=== PATIENT | male | born 1955 | race Caucasian/White ===

== ENCOUNTER 2019-05-26 20:39 | Observation (INO) | payer MEDICARE, SELFPAY ==
[2019-05-26 20:45] VITALS: BMI 25.4
[2019-05-26 22:13] VITALS: RESP 18
[2019-05-26] MEDS: sodium chloride 0.9% 1,000 ML 125 ML IV (22:13)
[2019-05-26] MEDS: heparin 5,000 unit/mL INJ 1 mL 5000 UNIT SUBCUT (22:13)
[2019-05-26] MEDS: morphine 4 mg/mL SDV 1 mL 2 MG IVP (22:13)
[2019-05-26 22:44] VITALS: BP 113/75; PULSE 76; RESP 18; TEMP 36.6; O2SAT 91
[2019-05-27] VITALS (17 sets, daily range): BP systolic 104–123; BP diastolic 65–79; PULSE 78–107; RESP 18–22; TEMP 36.6–37.5; O2SAT 92–97
[2019-05-27] MEDS: morphine 4 mg/mL SDV 1 mL 2 MG IVP (01:15)
[2019-05-27 02:01] LABS: Basophils # 0.1 10^3/uL (0.0-0.1); Basophils % 0.7 %; Eosinophils % 0.2 %; Hematocrit 51.7 % (42.0-52.0); Hemoglobin 17.5 g/dL (11.7-16.6); Lymphocytes # 0.8 10^3/uL (0.8-4.8); Lymphocytes % 6.7 %; Mean Corpuscular HGB Conc 33.8 g/dL (30.0-36.0); Mean Corpuscular Hemoglobin 31.5 pg (28.0-34.0); Mean Platelet Volume 9.4 fL (7.4-10.4); Monocytes # 0.9 10^3/uL (0.2-0.9); Monocytes % 7.5 %; Neutrophils # 10.3 10^3/uL (1.8-7.7); Neutrophils % 84.6 %; Nucleated Red Blood Cells % 0 %; Platelet Count 231 10^3/cmm (130-400); Red Blood Count 5.56 10^6/uL (4.1-5.3); Red Cell Distribution Width 14.4 % (12.1-15.1); White Blood Count 12.1 10^3/uL (4.0-10.0)
[2019-05-27 02:13] LABS: Alanine Aminotransferase 26 U/L (0-41); Albumin Level 4.8 g/dL (3.5-5.2); Alkaline Phosphatase 82 IU/L (40-130); Anion Gap 16.7 (5-19); Aspartate Amino Transferase 28 U/L (0-40); Blood Urea Nitrogen 23 mg/dL (8-23); Calcium 10.2 mg/Dl (8.8-10.2); Carbon Dioxide 26 mmol/L (22-29); Chloride 94 mmol/L (98-107); Globulin 3.5 g/dL (1.3-4.6); Glucose 129 mg/dL (74-106); Potassium 4.7 mmol/L (3.5-5.1); Sodium 132 mmol/L (136-145); Total Bilirubin 0.3 mg/dL (0.15-1.2); Total Protein 8.3 g/dL (6.6-8.7)
[2019-05-27 02:14] LABS: Lactic Acid 0.7 mmol/L (0.5-2.2)
[2019-05-27] MEDS: ipratropium-albuterol 3 mL Neb INHALATION ×3 (04:34→15:21)
--- NOTE | 2019-05-27 06:06 | PM.HP ---
Providers/Chief Complaint Admitting Physician: Simone Lainez MD Primary Care Provider: Gutierrez Friedman Chief Complaint: Shortness of breath and abdominal pain History of Present Illness Chief complaint: Abdominal pain and SOB HPI: Mr. Gerg Stephens is a pleasent 64 year old male well-known to me from recent clinical encounter that I have evaluated the patient for symptomatic right groin hernia being reducable few days ago and patient supposed to be getting elective right open groin hernia repair with mesh placement, apparently yesterday about 10:00 in the morning after eating couple of burgers he felt upper abdominal pain that got worse associated with shortness of breath, and thus he went to [facility] emergency department for further work-up was done and a CT scan was obtained that showed abnormal pathologic dilation of small bowel with decompression of the proximal and distal small bowel with overall features concerning for internal hernia as compared to a previous CT scan that was done back in 2016 that part of information related to the CT scan of 2016 was over [facility] was conveyed to me by Dr. Gipson ER doc as he contacted me yesterday evening with potential trans-fair to the hospital for concerning of bowel obstruction, and then the CT scan further mention unchanged abnormal tenting of the distal stomach towards the supraumbilical region which could represent gastrocutaneous fistula or adhesion possibly due to previous PEG tube placement, the relation of this abnormal finding to the bowel obstruction is unknown. Patient's labs were not impressive including lactic acid at the other hospital Patient recalls that he passed gas today morning and he feels a bit better, NG was already placed at [facility] and had some gastric content, last bowel movement was day before yesterday. Patient continues to have shortness of breath due to inspissated secretions related to his tracheostomy status post history of laryngeal cancer and neck ready Review of Systems Const: Denies: fever, chills, body aches or malaise Card: Denies: chest pain Resp: Reports: shortness of breath GI: Reports: abdominal pain Neuro: Denies: headache Psych: Reports: anxiety; Denies: depression Medications/Allergies Allergies Allergy/AdvReac Type Severity Reaction Status Date / Time No Known Allergies Allergy Verified 05/22/19 14:22 PFSH Acute PFSH: Statuses (acute, chronic, etc) shown below reflect problem list status as previously entered and may not be historically accurate Medical History (Updated 05/27/19 @ 12:04 by Susana Chandra DO) Anxiety and depression (Acute) COPD (chronic obstructive pulmonary disease) (Acute) Diabetes (Acute) GERD (gastroesophageal reflux disease) (Acute) Hypertension (Acute) Hypothyroidism (Acute) due to radiation Obesity (Acute) Obstructive sleep apnea (Acute) 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 Completed 3 doses of cisplatin, last dose on 10/26/2011 Completed radiation therapy on 11/03/2011 Tobacco abuse (Acute) Surgical History (Updated 05/27/19 @ 08:37 by Susana Chandra DO) History of laparoscopic cholecystectomy (Acute ~2014) 02/17/2016 History of tracheostomy (Acute ~2011) Tracheostomy placement on 09/04/2011 Status post insertion of percutaneous endoscopic gastrostomy (PEG) tube (Acute) PEG tube placed on 09/01/2011 Social History Smoking and tobacco status: current every day smoker cigarettes Packs smoked per day: 1 Quit status (tobacco): has tried quititng Second hand smoke exposure: No Alcohol intake: never Adopted: No Caregiver/support person: Yes Lives independently: Yes Household members: spouse and family Housing: House Marital status: Number of children: 2 Number of grandchildren: 2 service: No Current occupational status: employed and retired Current occupational exposures/hazards: No Pets and animals: Yes History of recent travel: No Leisure activites: games Sexually active: Yes Current gender identity: Male Luli/Samaritan: Sikhism Special luli needs: No Agree to transfusion: No Financial difficulty paying for basics: Decline to Answer Vitals/I&O/Wt Last Vital Signs Temp 97.9 F 05/27/19 04:00 Pulse 90 05/27/19 04:35 Resp 18 05/27/19 04:35 BP 111/75 05/27/19 04:00 Pulse Ox 93 05/27/19 04:35 05/26/19 05/26/19 05/27/19 14:59 22:59 06:59 Intake Total 0 / 0 0 / 0 Output Total 0 / 0 Balance 0 / 0 0 / 0 Weight last 48 hrs Weight 187 lb 6 oz Physical Exam Const: COMMON NORMALS: oriented x3 EXAM LIMITATIONS: other limitations (Appears anxious due to shortness of) GENERAL APPEARANCE: cooperative ORIENTATION/CONSCIOUSNESS: Yes awake, Yes oriented to person, Yes oriented to place and Yes oriented to time HENMT: COMMON NORMALS: normocephalic HEAD & SCALP: normocephalic Eye: COMMON NORMALS: PERRL and no scleral icterus PUPIL: Yes PERRL Neck/C-Spine: OTHER: Tracheostomy in place, nasogastric tube in place Lymph: LYMPHATIC: no lymphadenopathy noted Resp: EFFORT & INSPECTION: Yes able to speak in complete sentences, Yes abnormal respiratory pattern, Yes respiratory distress and Yes uses accessory muscles AUSCULTATION: wheezes (Bilateral) Cardio: COMMON NORMALS: S1 normal heart sound and S2 normal heart sound; negative for no murmurs HEART SOUNDS: S1 normal and S2 normal GI: COMMON NORMALS: soft to palpation; negative for no hepatosplenomegaly INSPECTION: Yes normal to inspection PALPATION: Yes firm, Yes tender (Epigastric region and left upper quad) Details: other (Unreliable abdominal examination due to use of accessory muscles in breathing), No guarding, No rigid, No no hepatosplenomegaly and Yes other (Right inguinal hernia stable examination being reducible, presence of pit at the upper abdomen site of previous PEG tube insertion.evidence of fistula form) Neuro: COMMON NORMALS: oriented x3 SENSORIUM/ORIENTATION: Yes oriented to person, Yes oriented to place and Yes oriented to time Psych: COMMON NORMALS: mental status grossly normal Skin: COMMON NORMALS: no rashes or lesions noted GENERAL SKIN EXAM: no rashes or lesions noted Data : 05/27/19 01:55 05/27/19 01:55 A&P Assessment and plan (1) Bowel obstruction: After limited history taking physical examination and reviewing the chart NG tube to low intermittent wall We will have the fluids running at 75 mL/h as I am concerned about patient's getting more respiratory distress I will reviewthe CT scan images with our radiology Will retrieve the disc for the CT scan done back in 2015 from [facility] to have it shipped over Repeated physical examination Respiratory therapy consultation with frequent nebs every 4-6 hours as needed Hospitalist consultation to address other medical issues including COPD Strict Is&Os Status: Acute Code(s): K56.609 - Unspecified intestinal obstruction, unspecified as to partial versus complete obstruction Attestations Medical Necessity Statement*: Observation fro now Critical Care Time: Critical care time: less than 30 mins Coding Level of Care Code Acute Heel Scorer for Chg Fwd Exam Problem Focused Diagnoses Bowel obstruction K56.609
--- NOTE | 2019-05-27 06:40 | XR_ITS ---
WS: [id number] ABDOMEN SERIES ACUTE Supine and upright views of the abdomen with AP or PA chest CLINICAL INFORMATION: SOB and upper abdominal pain COMPARISON: None. FINDINGS: Endotracheal tube with tip above the michelle. Enteric tube tip in proximal stomach. Heart: Normal cardiac silhouette. Lungs: Chronic emphysematous changes. Calcified granuloma right lung base. No focal pneumonia or sign ificant pleural fluid. Bowel gas pattern: Air distended loops of small bowel with air-fluid levels consistent with partial s mall bowel obstruction. Persistent air within the colon. Contrast in the bladder. Free air: None. Abnormal calcifications: None. Bones: Normal. Cholecystectomy clips. XR/XR acute abdomen series 97831 IMPRESSION: 1. Persistent findings of partial small bowel obstruction with air-fluid level s. Persistent air within the colon. 2. Enteric tube with tip in the proximal stomach. 3. Endotracheal tube tip above the michelle.
--- NOTE | 2019-05-27 08:15 | PM.CONSULT ---
Providers/Reason For Consult Consulting Physican/Specialty*: Susana Chandra DO Hospitalist Reason for Consult*: Management of dyspnea and COPD Requesting Physcian: Dr. Lainez, general surgeon Attending Physician: Simone Lainez MD Primary Care Provider: Gutierrez Friedman History of Present Illness History of Present Illness Greg Stephens is a 64 year old male with a past medical history of squamous cell carcinoma of the hypopharynx that presented from an outside emergency department due to concern for abdominal pain. Patient had been seen and evaluated in general surgery clinic last week, therefore was accepted onto Dr. Lainez' service. Due to concern for abdominal pain and small bowel obstruction. Called for medical management due to patient having COPD and tracheostomy. Patient reports that he is not having any increased cough, no increase in sputum production, reports that when he suctions that he is at his baseline. He denies being on any oxygen at home. Stated that he was diagnosed with sleep apnea in the past but since having his trach he has not required CPAP. He denies any fevers or chills at home, no sick contacts. Patient reports only concern is abdominal pain. Review of Systems Const: Denies: fever, chills, body aches or malaise Eyes: Denies: change in vision ENMT: Denies: nasal congestion Card: Denies: chest pain Resp: Denies: shortness of breath GI: Reports: abdominal pain : Denies: painful urination or blood in urine Musc: Denies: extremity pain or muscle cramps Skin/Breast: Denies: rash or new lesion Neuro: Denies: headache Psych: Reports: anxiety; Denies: depression Endo: Denies: excessive urination or hot flashes Max/Lymph: Denies: easy bruising or easy bleeding Meds/Allergies Home Medications and Allergies Home Medications Medication Instructions Recorded Confirmed Type amitriptyline 50 mg tablet 50 mg PO ONCE 05/22/19 05/22/19 History bupropion HCl 150 mg 24 hr tablet, 150 mg PO BID tab 05/22/19 05/22/19 History extended release cyclobenzaprine 10 mg tablet 10 mg PO TID 05/22/19 05/22/19 History doxepin 25 mg capsule 25 mg PO ONCE cap 05/22/19 05/22/19 History levothyroxine 100 mcg capsule 100 mcg PO ONCE 05/22/19 05/22/19 History lisinopril 5 mg tablet 5 mg PO BID 05/22/19 05/22/19 History lovastatin 10 mg tablet 10 mg PO ONCE 05/22/19 05/22/19 History metoprolol succinate 50 mg 50 mg PO ONCE tab 05/22/19 05/22/19 History tablet,extended release 24 hr pantoprazole 40 mg tablet,delayed 40 mg PO BID tab 05/22/19 05/22/19 History release Allergies Allergy/AdvReac Type Severity Reaction Status Date / Time No Known Allergies Allergy Verified 05/22/19 14:22 Current Medications Current Medications Generic Name Dose Route Start Last Admin Trade Name Freq PRN Reason Stop Dose Admin Albuterol/Ipratropium 3 ml 05/27/19 00:16 05/27/19 04:34 Duoneb INHALATION 3 ml Q4H PRN Administration SHORTNESS OF BREATH Heparin Sodium (Beef Lung) 5,000 unit 05/26/19 21:30 05/26/19 22:13 Heparin SUBCUT 5,000 unit Q8H WHITNEY Administration Morphine Sulfate 2 mg 05/26/19 21:28 05/27/19 01:15 Morphine IVP 2 mg Q2H PRN Administration SEVERE PAIN PFSH Acute PFSH: Statuses (acute, chronic, etc) shown below reflect problem list status as previously entered and may not be historically accurate Medical History (Updated 05/27/19 @ 12:04 by Susana Chandra DO) Anxiety and depression (Acute) COPD (chronic obstructive pulmonary disease) (Acute) Diabetes (Acute) GERD (gastroesophageal reflux disease) (Acute) Hypertension (Acute) Hypothyroidism (Acute) due to radiation Obesity (Acute) Obstructive sleep apnea (Acute) 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 Completed 3 doses of cisplatin, last dose on 10/26/2011 Completed radiation therapy on 11/03/2011 Tobacco abuse (Acute) Surgical History (Updated 05/27/19 @ 08:37 by Susana Chandra DO) History of laparoscopic cholecystectomy (Acute ~2014) 02/17/2016 History of tracheostomy (Acute ~2011) Tracheostomy placement on 09/04/2011 Status post insertion of percutaneous endoscopic gastrostomy (PEG) tube (Acute) PEG tube placed on 09/01/2011 Social History Smoking and tobacco status: current every day smoker cigarettes Packs smoked per day: 1 Quit status (tobacco): has tried quititng Second hand smoke exposure: No Alcohol intake: never Adopted: No Caregiver/support person: Yes Lives independently: Yes Household members: spouse and family Housing: House Marital status: Number of children: 2 Number of grandchildren: 2 service: No Current occupational status: employed and retired Current occupational exposures/hazards: No Pets and animals: Yes History of recent travel: No Leisure activites: games Sexually active: Yes Current gender identity: Male Luli/Yazidi: Orthodox Special luli needs: No Agree to transfusion: No Financial difficulty paying for basics: Decline to Answer Dietary Habits: Current diet type/program: regular Caffeine: No High-fat food intake: 2 times daily Daily servings fruits/vegetables: 0-1 Daily servings of milk/calcium: 0-1 Eating out: rarely or never Reads food labels: usually or always During the past year weight has: remained stable Exercise: What type of physical activity do you participate in?: walking Physical activity functional status: independent ambulation How many days of moderate to strenuous exercise, like a brisk walk, did you do in the last 7 days: 2 Safety: Seatbelt use: always Helmet use: No Drive intoxicated or ride with intoxicated tour bus driver?: never Home Safety: Water heater temperature set < 120 degrees: No Working smoke detector in home: Yes Fire extinguisher in home: No Carbon monoxide detector in home: No Firearms in home: No Personal Safety: Do you feel safe at home: No Victim of physical abuse: No Victim of emotional abuse: No Victim of sexual abuse: No Would you like help information on resources?: No NHANES Social Connection/Isolation: Are you now , , , , never or living with a partner?: In a typical week, how many times do you talk on the telephone with family, friends, or neighbors?: Three or More Times per Week How often do you get together with friends or relatives?: Three or More Times per Week Do you belong to any clubs or organizations such as adventist groups unions, fraternal or athletic groups, or school groups?: No Social isolation score (0-1 are the most socially isolated patients): 2 Social isolation score reviewed/action taken: No Vitals/I&O/Wt Last Vital Signs Temp 97.9 F 05/27/19 07:55 Pulse 98 05/27/19 07:55 Resp 20 H 05/27/19 07:55 BP 123/79 05/27/19 07:55 Pulse Ox 96 05/27/19 07:55 05/26/19 05/27/19 05/27/19 22:59 06:59 14:59 Intake Total 0 / 0 0 / 0 Output Total 0 / 0 Balance 0 / 0 0 / 0 Weight last 48 hrs Weight 84.992 kg Physical Exam Const: COMMON NORMALS: oriented x3 and alert GENERAL APPEARANCE: cooperative ORIENTATION/CONSCIOUSNESS: Yes awake, Yes oriented to person, Yes oriented to place and Yes oriented to time HENMT: COMMON NORMALS: normocephalic and head/scalp atraumatic HEAD & SCALP: normocephalic and atraumatic Eye: COMMON NORMALS: PERRL PUPIL: Yes PERRL Neck/C-Spine: OTHER: trach in place Resp: COMMON NORMALS: normal respiratory effort EFFORT & INSPECTION: Yes able to speak in complete sentences AUSCULTATION: no rhonchi and wheezes expiratory wheezes and throughout Cardio: COMMON NORMALS: regular rate, regular rhythm and no murmurs RATE: regular rate RHYTHM: regular rhythm GI: AUSCULTATION: Yes hypoactive bowel sounds PALPATION: Yes tender (epigastric region) Extremity: COMMON NORMALS: no clubbing, cyanosis or edema and no calf tenderness Neuro: COMMON NORMALS: oriented x3, CN's II-XII intact bilaterally, moves all extremities and no focal motor deficits SENSORIUM/ORIENTATION: Yes alert, Yes oriented to person, Yes oriented to place and Yes oriented to time SPEECH: speech normal Psych: COMMON NORMALS: mental status grossly normal and cooperative Skin: COMMON NORMALS: no rashes or lesions noted GENERAL SKIN EXAM: no rashes or lesions noted Data Imaging^: KUB: My impression: reviewed, report as below Radiologist's impression: 1. Persistent findings of partial small bowel obstruction with air-fluid levels. Persistent air within the colon. 2. Enteric tube with tip in the proximal stomach. 3. Endotracheal tube tip above the michelle. A&P Assessment and plan (1) Bowel obstruction: Per Dr. Giurgius NPO with NG tube placement Patient reports continued pain today, slight improvement today, able to pass flatus today Status: Acute Code(s): K56.609 - Unspecified intestinal obstruction, unspecified as to partial versus complete obstruction (2) COPD (chronic obstructive pulmonary disease): diffuse wheezing, reported that his breathing and secretions are at baseline Oxygen per protocol RTAT Continue close monitoring, patient reports that he is at baseline, but if any change will start on DOxycycline and prednisone Status: Acute Code(s): J44.9 - Chronic obstructive pulmonary disease, unspecified (3) Tobacco abuse: 2ppd Strongly encourage cessation Status: Acute Code(s): Z72.0 - Tobacco use Additional A&P Information History of squamous cell carcinoma of the hypopharynx, in remission status post tracheostomy placement Consult Attestations Medical Necessity Statement: Patient requires continued hospitalization due to small bowel obstruction Coding Level of Care Code Acute Marine Engine Driver for Chg Fwd Diagnoses Bowel obstruction K56.609 COPD (chronic obstructive pulmonary disease) J44.9 Tobacco abuse Z72.0
[2019-05-27] MEDS: sodium chloride 0.9% 1,000 ML 75 ML IV ×2 (08:42→22:23)
[2019-05-27] MEDS: heparin 5,000 unit/mL INJ 1 mL 5000 UNIT SUBCUT ×2 (08:43→19:09)
--- NOTE | 2019-05-27 15:20 | PC.CHAP ---
Pastoral Care Encounter/Spiritual Assessment Type of Contact [] Declined licensed social worker visit [] Patient/Family/Request visit [] Outpatient visit [x] Follow-up visit [] Physician referral [] Code/Alert [] Routine visit [] Staff referral [] Actively dying [] Patient sleeping [] Family support [] [] Out of room [] Palliative care [] [] Receiving care in room [] Pre-surgical visit [] Trauma [] Long length of stay [] ICU visit [] Other: Relational/Emotional Strength [] Patient feels connected with others/family/visitors/staff [] Distress [] Loneliness/isolation [] Abandonment Spirituality of Patient [] Person of Luli [] Attends Presybeterian of their Luli [] Believes in Prayer [] Reads Bible or Orthodoxy materials [] There are Spiritual issues to be addressed Antenna Specialist Interventions [] Prayer [] Active listening [] Non-anxious presence [] Spiritual/emotional support [] Crisis/trauma care [] Spiritual counseling [] Bereavement support [] Provided bereavement packet [] Provided Bible/devotional materials [] Provided toy/stuffed animal, coloring book to patient or family member [] Completed spiritual assessment [] Provided Communion [] Anointing/[place] [] Salvation [] Other: Impact on Illness or Injury [] Angry [] Fearful [] Anxious [] Often cries [] Exhaustion [] Unable to work [] Unable to attend oriental orthodox [] Unable to walk/stand [] Unable to read [] Unable to drive [] Unable to eat/drink [] Unable to sleep [] Unable to be with family [] Other: Summary patient asleep needs follow up heidy qiana Time spent with patient
[2019-05-27] MEDS: predniSONE 20 mg Tablet 40 MG PO (19:08)
[2019-05-27] MEDS: doxycycline 100 mg Tablet PO (19:08)
[2019-05-27] MEDS: sodium chloride 0.9% 500 ML 999 ML IV (19:09)
[2019-05-28] VITALS (9 sets, daily range): BP systolic 109–154; BP diastolic 70–105; PULSE 85–104; RESP 16–26; TEMP 36.8–37.2; O2SAT 87–98
[2019-05-28] MEDS: heparin 5,000 unit/mL INJ 1 mL 5000 UNIT SUBCUT ×3 (01:17→17:34)
--- NOTE | 2019-05-28 05:40 | PM.PN ---
Subjective Subjective: Interval history: Patient overall feels much better, passing more gas and had 3 loose bowel movements. Apparently the NG got curled up in the patient's throat yesterday and I decided just to keep it out and if he started vomiting we would insert another one, which was not the case. Vitals/I&O/Wt Last Vital Signs Temp 98.5 F 05/28/19 04:00 Pulse 94 05/28/19 04:00 Resp 20 H 05/28/19 04:00 BP 121/80 05/28/19 04:00 Pulse Ox 92 05/28/19 04:00 05/27/19 05/27/19 05/28/19 14:59 22:59 06:59 Intake Total 1000 / 1000 496.25 / 1496.25 Output Total 300 / 300 250 / 550 250 / 800 Balance -300 / -300 750 / 450 246.25 / 696.25 Weight last 48 hrs Weight 187 lb 6 oz Physical Exam Const: COMMON NORMALS: no apparent distress and oriented x3 GENERAL APPEARANCE: cooperative ORIENTATION/CONSCIOUSNESS: Yes awake, Yes oriented to person, Yes oriented to place and Yes oriented to time Resp: AUSCULTATION: other (Clear to auscultation on the right side more than the left side yet no wheezes) Cardio: COMMON NORMALS: S1 normal heart sound and S2 normal heart sound; negative for no murmurs HEART SOUNDS: S1 normal and S2 normal GI: COMMON NORMALS: soft to palpation; negative for no hepatosplenomegaly INSPECTION: Yes normal to inspection PALPATION: Yes soft, No firm, No tender, No guarding, No rigid and No no hepatosplenomegaly Neuro: COMMON NORMALS: oriented x3 SENSORIUM/ORIENTATION: Yes oriented to person, Yes oriented to place and Yes oriented to time Psych: COMMON NORMALS: mental status grossly normal A&P Assessment and plan (1) Bowel obstruction: Before start feeding the patient I would like to compare the CT scan done back in 2016 to the one done day before yesterday, which I did discuss today the CT scan findings of with Dr. Olvera as we did not receive yet the one done in 2016 she does not believe that there is evidence of internal herniation and the patient may likely have partial adhesive small bowel obstruction, and subsequently since the patient is improving clinically,will start the patient on clear liquid diet and if he tolerates that we will plan to send him home today and follow-up with me in the office. I appreciate the hospitalist service input Status: Acute Code(s): K56.609 - Unspecified intestinal obstruction, unspecified as to partial versus complete obstruction Attestations Medical Necessity Statement*: Observation status Coding Level of Care Code Acute Readiness Paraprofessional for Chg Fwd Exam Problem Focused Diagnoses Bowel obstruction K56.609
[2019-05-28 06:43] LABS: Basophils % 0.3 %; Hematocrit 46.2 % (42.0-52.0); Hemoglobin 14.9 g/dL (11.7-16.6); Lymphocytes # 0.6 10^3/uL (0.8-4.8); Lymphocytes % 6.5 %; Mean Corpuscular HGB Conc 32.3 g/dL (30.0-36.0); Mean Corpuscular Hemoglobin 30.5 pg (28.0-34.0); Mean Corpuscular Volume 94.5 fL (80-94); Mean Platelet Volume 10.6 fL (7.4-10.4); Monocytes # 0.5 10^3/uL (0.2-0.9); Monocytes % 5.6 %; Neutrophils # 8.2 10^3/uL (1.8-7.7); Neutrophils % 87.3 %; Nucleated Red Blood Cells % 0 %; Platelet Count 199 10^3/cmm (130-400); Red Blood Count 4.89 10^6/uL (4.1-5.3); Red Cell Distribution Width 14.6 % (12.1-15.1); White Blood Count 9.4 10^3/uL (4.0-10.0)
[2019-05-28 06:55] LABS: Anion Gap 13.8 (5-19); Blood Urea Nitrogen 32 mg/dL (8-23); Calcium 9.2 mg/Dl (8.8-10.2); Carbon Dioxide 26 mmol/L (22-29); Chloride 102 mmol/L (98-107); Glomerular Filtration Rate 67.2 mL/min (90-130); Glucose 110 mg/dL (74-106); Potassium 4.8 mmol/L (3.5-5.1); Sodium 137 mmol/L (136-145)
[2019-05-28] MEDS: doxycycline 100 mg Tablet PO ×2 (09:33→17:35)
[2019-05-28] MEDS: predniSONE 20 mg Tablet 40 MG PO (09:33)
[2019-05-28] MEDS: sodium chloride 0.9% 1,000 ML 75 ML IV (10:31)
--- NOTE | 2019-05-28 10:42 | PC.CHAP ---
Pastoral Care Encounter/Spiritual Assessment Type of Contact [] Declined deputy probation officer visit [] Patient/Family/Request visit [] Outpatient visit [] Follow-up visit [] Physician referral [] Code/Alert [x] Routine visit [] Staff referral [] Actively dying [] Patient sleeping [] Family support [] [] Out of room [] Palliative care [] [] Receiving care in room [] Pre-surgical visit [] Trauma [] Long length of stay [] ICU visit [] Other: Relational/Emotional Strength [] Patient feels connected with others/family/visitors/staff [] Distress [] Loneliness/isolation [] Abandonment Spirituality of Patient [x] Person of Luli [] Attends Advent of their Luli [] Believes in Prayer [] Reads Bible or Sabianism materials [] There are Spiritual issues to be addressed Management Professionals Interventions [x] Prayer [] Active listening [] Non-anxious presence [] Spiritual/emotional support [] Crisis/trauma care [] Spiritual counseling [] Bereavement support [] Provided bereavement packet [] Provided Bible/devotional materials [] Provided toy/stuffed animal, coloring book to patient or family member [x] Completed spiritual assessment [] Provided Communion [] Anointing/[place] [] Salvation [] Other: Impact on Illness or Injury [] Angry [] Fearful [] Anxious [] Often cries [] Exhaustion [] Unable to work [] Unable to attend bahai [] Unable to walk/stand [] Unable to read [] Unable to drive [] Unable to eat/drink [] Unable to sleep [] Unable to be with family [] Other: Summary patitent attatude very up and wants to go home and see dogs was present Time spent with patient 10 min
--- NOTE | 2019-05-28 14:20 | P.PN_ITS ---
Subjective Subjective: Interval history: Patient seems to be doing well. He is denying any shortness of breath or significant sputum production. He is on 6 L currently but is not sure why. He normally does not wear oxygen at home. Apparently is been walking around today quite a bit without his oxygen and seems to be doing well. He states that he has been eating breakfast and lunch with no difficulties. He has had couple large bowel movements yesterday. Passing plenty of gas today. Abdominal pain is resolved. No nausea. He is anxious to go home today. Vitals/I&O/Wt Last Vital Signs Temp 98.8 F 05/28/19 11:34 Pulse 95 05/28/19 11:34 Resp 22 H 05/28/19 11:34 BP 138/89 05/28/19 11:34 Pulse Ox 98 05/28/19 11:34 05/27/19 05/28/19 05/28/19 22:59 06:59 14:59 Intake Total 1000 / 1496.25 496.25 / 1496.25 1113.75 / 1113.75 Output Total 250 / 1000 450 / 1000 Balance 750 / 496.25 46.25 / 496.25 1113.75 / 1113.75 Weight last 48 hrs Weight 187 lb 6 oz Physical Exam Narrative: EXAM NARRATIVE: General: No acute distress, Alert. Well nourished. Heart: Regular rate and rhythm. No murmurs, rubs or gallops. Normal capillary refill. Lungs: Clear to auscultation. No wheezes, rhonchi or rales. Abdomen: Positive bowel sounds. Non-tender, non-distended. No hepatosplenomegaly. No gaurding. Extremities: No clubbing, cyanosis, or edema. Negative Miranda's A&P Assessment and plan (1) COPD (chronic obstructive pulmonary disease): Clinically this seems to be stable. We will go ahead and do home O2 evaluation. If he is okay to go from a surgical standpoint I believe from a pulmonary standpoint he is cleared to go today. Status: Acute Code(s): J44.9 - Chronic obstructive pulmonary disease, unspecified (2) Bowel obstruction: Bowel obstruction seems to be resolved. Disposition per Dr. Lainez. Status: Acute Code(s): K56.609 - Unspecified intestinal obstruction, unspecified as to partial versus complete obstruction Attestations Medical Necessity Statement*: Per attending Coding Level of Care Code Acute Anatomic Pathology Manager for g Fwd Diagnoses COPD (chronic obstructive pulmonary disease) J44.9 Bowel obstruction K56.609
--- NOTE | 2019-05-28 19:51 | PC.NURSE ---
Dr Fermin added following items to dischage, Doxycycline 100mg po bid for 5 days#10 with no refills and Prednisone 20mg po once daily for 3 days #3 with no refills, called in to [facility] in [facility].
--- NOTE | 2019-05-28 20:08 | PC.NURSE ---
Pt discharged, discharge paperwork given to and explained to pt, pt signature acquired on D/C paper, and pt escorted to waiting private vehicle
--- NOTE | 2019-05-28 20:11 | PC.NURSE ---
pt's IV PIID removed prior to D/C.
--- NOTE | 2019-05-31 07:39 | PM.DCS ---
Discharge Providers Date of Admission: 05/26/19 20:39 Date of Discharge: 05/28/19 Attending Provider at Admission: Simone Lainez MD Attending Provider at Discharge: Simone Lainez MD Primary Care Provider: Gutierrez Friedman Diagnoses at Discharge Discharge Diagnosis (1) COPD (chronic obstructive pulmonary disease): Status: Acute Problem details: Medical management (2) Bowel obstruction: Status: Resolved Problem details: Avoid constipation Appropriate hydration Reason for Visit Reason for Visit: Reason For Visit: Shortness of breath and abdominal pain Hospital Course Discharge Summary: This is a pleasant 64 years old gentleman well-known to me from outpatient surgical visit for symptomatic right groin hernia, apparently the patient presented to the emergency department on 26 May 2019 with worsening upper abdominal pain and shortness of breath, a CT scan of the abdomen and pelvis was obtained and there was a concern of internal hernia/bowel obstruction, that stable examination in comparison to the CT scan done back in 2016 over [facility]. Patient had an NG inserted in the ER of [facility] and he was transferred as a accepted the patient under my service for further evaluation and potential intervention. Patient responded to conservative measures and was able to pass gas and having bowel movements and thus NG was taken out and was started on clear liquid diet, tolerated that well and I did review the CT scan images with our radiologist and they do not believe that the patient has an internal hernia. Likely the patient had partial adhesive small bowel obstruction that resolved and responded well to conservative management. Physical Exam Const: COMMON NORMALS: no apparent distress and oriented x3 GENERAL APPEARANCE: cooperative ORIENTATION/CONSCIOUSNESS: Yes awake, Yes oriented to person, Yes oriented to place and Yes oriented to time HENMT: COMMON NORMALS: normocephalic HEAD & SCALP: normocephalic Eye: COMMON NORMALS: PERRL and no scleral icterus PUPIL: Yes PERRL Neck/C-Spine: GENERAL: Yes trachea midline (Tracheostomy in place) Lymph: LYMPHATIC: no lymphadenopathy noted Chest: COMMONS NORMALS: inspection of chest normal Resp: COMMON NORMALS: normal respiratory effort and clear to auscultation bilaterally AUSCULTATION: clear to auscultation bilaterally Cardio: COMMON NORMALS: S1 normal heart sound and S2 normal heart sound; negative for no murmurs HEART SOUNDS: S1 normal and S2 normal GI: COMMON NORMALS: soft to palpation; negative for no hepatosplenomegaly INSPECTION: Yes normal to inspection AUSCULTATION: Yes other (Previous PEG tube insertion site without complication) PALPATION: Yes soft, No firm, No tender, No guarding, No rigid, No no hepatosplenomegaly and Yes hernia (Right groin hernia reducible) Neuro: COMMON NORMALS: oriented x3 SENSORIUM/ORIENTATION: Yes oriented to person, Yes oriented to place and Yes oriented to time Psych: COMMON NORMALS: mental status grossly normal Skin: COMMON NORMALS: no rashes or lesions noted GENERAL SKIN EXAM: no rashes or lesions noted Discharge Data Data Completed and Pending: Completed Studies During Hospitalization Category Date Time Status XR acute abdomen series 75018 Urgen t Exams 05/27/19 06:40 Completed Vitals: Last Vital Signs Temp 98.2 F 05/28/19 19:45 Pulse 104 H 05/28/19 19:45 Resp 20 H 05/28/19 19:45 BP 154/105 05/28/19 19:45 Pulse Ox 91 05/28/19 19:45 Discharge Plan Discharge Patient Disposition: Home, Self-Care Condition: Stable Prescriptions: Continued lisinopril 5 mg tablet 5 mg PO BID RF: 0 levothyroxine 100 mcg capsule 100 mcg PO ONCE RF: 0 bupropion HCl 150 mg tablet extended release 24 hr 150 mg PO BID RF: 0 doxepin 25 mg capsule 25 mg PO ONCE RF: 0 amitriptyline 50 mg tablet 50 mg PO ONCE RF: 0 pantoprazole [Protonix] 40 mg tablet,delayed release (DR/EC) 40 mg PO BID RF: 0 cyclobenzaprine 10 mg tablet 10 mg PO TID RF: 0 metoprolol succinate [Toprol XL] 50 mg tablet extended release 24 hr 50 mg PO ONCE RF: 0 lovastatin 10 mg tablet 10 mg PO ONCE RF: 0 Discharge Orders: Discharge Order (Routine); Ordered 05/28/19 Ordered By: Simone Lainez Other Ambulatory Orders: [place] barium swallow modifd 15221 (Routine) Timeframe: 1 Week Facility: [facility] - Location: Radiology Ordered By: Simone Lainez DME: Oxygen (Order) Location: None Selected Ordered By: Michele Fermin Referrals: [facility] [Outside] Simone Lainez MD [Physician] - 06/11/19 Discharge Diet: Advance as tolerated Discharge Activity: Resume usual activity Patient Instructions: Doxycycline (By mouth), Prednisolone (By mouth) Activity Restrictions/Additional Instructions: Return to the emergency department for worsening abdominal pain nausea and vomiting. Take Doxycycline 100mg tablet by mouth twice daily for 5 days. Take Prednisone 20mg tablet by mouth once daily for 3 days Discharge Date/Time: 05/28/19 20:15 Discharge Attestations Time Spent in Discharge Care*: less than 30 min Quality Metrics Clinical Quality Measures During this hospital stay, did patient experience: None Coding Level of Care Code Acute Personal Lines Advisor for Aravind Fwd Diagnoses COPD (chronic obstructive pulmonary disease) J44.9 Bowel obstruction K56.609
== END 2019-05-28 20:15 | disposition home or self-care (01) ==
PROVIDERS: Admitting Provider Surgery; Family Provider Physician Assistant Medical; PCP Physician Assistant Medical; Visit Provider Surgery
DX: K56.609 Unspecified intestinal obstruction, unspecified as to partial versus complete obstruction (principal); F41.9 Anxiety disorder, unspecified; J44.9 Chronic obstructive pulmonary disease, unspecified; E11.9 Type 2 diabetes mellitus without complications; K21.9 Gastro-esophageal reflux disease without esophagitis; I10 Essential (primary) hypertension; E03.9 Hypothyroidism, unspecified; E66.9 Obesity, unspecified; Z68.25 Body mass index [BMI] 25.0-25.9, adult; G47.33 Obstructive sleep apnea (adult) (pediatric); Z92.3 Personal history of irradiation; F17.210 Nicotine dependence, cigarettes, uncomplicated; Z85.819 Personal history of malignant neoplasm of unspecified site of lip, oral cavity, and pharynx
CPT/HCPCS: 12345; 36415; 74022; 80048; 80053; 83605; 85025; 94640; 94664; 94799; 96360; 96361; 96372; 96375; G0378; G0379; J1644; J2270; J7030; J7040; J7512

== ENCOUNTER 2019-10-23 08:56 | Outpatient (CLI) | payer MEDICARE, SELFPAY ==
--- NOTE | 2019-10-23 09:05 | CT_ITS ---
WS: [id number] CT scan of the chest with IV contrast, additional two-dimensional coronal and sagittal reconstruction was performed. 10/23/2019 Clinical Data: HEAD/NECK CANCER/PULMONARY NODULES Comparison: CT chest, 10/18/2018. DLP: 530.[address] scans at [facility] use at least one of these dose optimization techniques: automat ed exposure control; mA and/or kV adjustment per patient size (includes targeted exams where dose is matched to clinical indication); or iterative reconstruction. Findings: The tracheostomy tube remains in good position. No nodules, masses or effusions are seen. The left upper lobe small nodules are not evident on this e xamination. The heart size is normal with no pericardial effusion. The pulmonary arterial system and thoracic aorta demonstrate no abnormalities or dilatations. No pneumonia or pneumothorax is seen. The bony thorax is not remarkable. There is no axillary or significant mediastinal adenopathy. The upper abdomen shows no change from before. There is a large amount of air in the colon CT/CT chest w con* [id number] Impression: 1. The left upper lobe subpleural nodules are not evident on the current examin ation. 2. No pneumonia or lung masses are seen.
[2019-10-23 09:35] LABS: Basophils # 0.1 10^3/uL (0.0-0.1); Basophils % 1.2 %; Eosinophils # 0.1 10^3/uL (0.0-0.8); Eosinophils % 1.3 %; Hematocrit 51.7 % (42.0-52.0); Hemoglobin 17.3 g/dL (11.7-16.6); Lymphocytes # 1.1 10^3/uL (0.8-4.8); Lymphocytes % 10.2 %; Mean Corpuscular HGB Conc 33.5 g/dL (30.0-36.0); Mean Corpuscular Hemoglobin 31.8 pg (28.0-34.0); Mean Platelet Volume 9.5 fL (7.4-10.4); Monocytes # 1.1 10^3/uL (0.2-0.9); Monocytes % 10.7 %; Neutrophils # 7.9 10^3/uL (1.8-7.7); Neutrophils % 76.2 %; Nucleated Red Blood Cells % 0 %; Platelet Count 222 10^3/cmm (130-400); Red Blood Count 5.44 10^6/uL (4.1-5.3); White Blood Count 10.4 10^3/uL (4.0-10.0)
[2019-10-23 09:50] LABS: Alanine Aminotransferase 24 U/L (0-41); Albumin Level 4.5 g/dL (3.5-5.2); Alkaline Phosphatase 69 IU/L (40-130); Anion Gap 18.6 (5-19); Aspartate Amino Transferase 22 U/L (0-40); Blood Urea Nitrogen 18 mg/dL (8-23); Calcium 9.5 mg/dL (8.5-10.5); Carbon Dioxide 27 mmol/L (22-29); Chloride 88 mmol/L (98-107); Globulin 3.3 g/dL (1.3-4.6); Glomerular Filtration Rate 84.7 mL/min (90-130); Glucose 105 mg/dL (65-115); Osmolality Calculated 265 mOsm/kg (285-295); Potassium 4.6 mmol/L (3.5-5.1); Sodium 129 mmol/L (136-145); Total Bilirubin 0.5 mg/dL (0.15-1.2); Total Protein 7.8 g/dL (6.6-8.7)
[2019-10-23] MEDS: iohexol 300 mg/mL 100 mL Btl IV (10:26)
== END 2019-10-23 08:57 | disposition home or self-care (01) ==
LOC: RAD 09:01
PROVIDERS: PCP Physician Assistant Medical; Visit Provider Internal Medicine Medical Oncology
DX: C76.0 Malignant neoplasm of head, face and neck (principal); R91.8 Other nonspecific abnormal finding of lung field
CPT/HCPCS: 36415; 71260; 80053; 85025

== ENCOUNTER 2019-10-27 15:58 | Outpatient (CLI) | payer MEDICARE, SELFPAY ==
--- NOTE | 2019-10-29 08:32 | ONC FU_ITS ---
Dr. Echevarria Patient Follow-Up Note Patient: Greg Stephens Unit #: [id number]: [id number] Dicatated By: Mauro Echevarria M.D.Date of Visit:Oct 27, 2019 Onc Med Follow-up/Prog Note Chief Complaint: Squamous cell carcinoma of the hypopharynx. 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 He had presented with 6 months duration of persistent throat pain. 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 He had a very large primary tumor extending through oropharynx, hypopharynx, and supraglottic larynx with suggestion of extension to the left carotid space and possible thyroid cartilage. He had an airway compromise. He also had 2 suspicious ipsilateral lymph nodes measuring 11 mm. PEG was placed on 09/01/11. Tracheostomy was placed on 09/04/11. Primary chemoradiation with cisplatin 100 mg/m??? on days 1, 22, and 43 was initiated on 09/14/2011. The patient was able to complete all 3 doses of cisplatin with the last dose delivered on 10/26/2011. He completed radiation therapy on 11/03/2011 to a total dose of [address] of the chest/abdomen/pelvis and bone scan at the end of November of 2011 as well as direct visualization of the tumor showed no evidence of disease. Followup PET/CT on 01/12/12 showed an exophytic mass in the left supraglottic larynx without FDG uptake. His treatment was complicated with radiation induced hypothyroidism, for which he is on replacement therapy. His restaging CT of the neck on 08/20/2013 showed slow improvement in the laryngeal mass at 3.3 cm with an improvement in obstruction of the airway. CT of the chest was negative for metastatic disease. CT of the neck and chest on 09/04/2014 was unchanged. He continued ENT followup with Dr. Winn. Restaging CT of the chest on 09/01/2015 was without metastatic disease. CT neck showed decrease in soft tissue. Repeat neck CT on 03/13/2016 showed residual mass in the left vocal cord and left aryepiglottic fold measuring 1.9 x 2.1 x 1.5 cm. In the meantime, he had undergone cholecystectomy on 02/17/2016. He had postoperative complications, requiring readmission to the hospital, but he ultimately did recover. He has continued observation/expectant management for the head/neck cancer. Surveillance chest scans of the neck and CT on 10/06/2016 showed the aryepiglottic fold mass which appeared stable over multiple prior examinations. There was no lymphadenopathy noted. The chest showed a new 3.9 mm nodule in the periphery of the left upper lung. Additional peripherally based nodular densities and/or opacities were stable. There was moderate severe chronic emphysema. CT of the neck on 04/13/2017 showed increased nodular thickening of the left false vocal cord. There was persistent and otherwise stable thickening of the left aryepiglottic fold. There was no other evidence of soft tissue neck mass or pathologic lymphadenopathy. His chest CT showed 3 left upper lobe pulmonary parenchymal nodules which were new from the September 2016 study. The largest was just 4 mm, and the significance is uncertain. Other findings included chronic emphysema and coronary artery calcifications. There also was evidence of remote granulomatous disease. CT of the neck on 10/12/2017 showed no change in the left aryepiglottic fold and left false vocal cord thickening. There was mild diffuse edema in the glottis consistent with treatment related changes. There was no cervical lymphadenopathy. On the chest CT, the previously described tiny left upper lobe pulmonary nodules were no longer visualized. There were moderate chronic emphysematous changes noted. There was no mediastinal or hilar lymphadenopathy. Repeat chest CT on 10/18/2018 showed no change in the tiny subpleural pulmonary nodules in left upper lobe. These measured in the range of 3-4 mm. There were no new pulmonary nodules noted. He continued on observation/expectant management. His other medical illnesses include COPD and obstructive sleep apnea. He has a history of smoking up to 2 packs of cigarettes daily in excess of 50 years. INTERIM HISTORY: On his repeat chest CT on 10/23/2019 the left upper lobe subpleural nodules were not evident. There were no new lung masses seen. There was no mediastinal, hilar, or axillary adenopathy. He is seen for a scheduled visit. He has been plugging along . His energy level is somewhat variable, but he is able to do light work. ECOG score is 1. He has good appetite. He has no fever or night sweats. He has just a little trouble swallowing. He has some shortness of breath with activity. He coughs to clear his trach. He does not complain of chest pain. He has no GI complaints. He is having little more difficulty voiding at times, he does have urinary frequency and nocturia. He has no significant joint or bone pain. He does not complain of headache or dizziness, and he has no focal neurologic symptoms. Medications: buPROPion HCl ER (SR) 1 Tablet (of 150 mg) Tablet SR 12 HR Oral b.i.d., dilTIAZem CD 1 Capsule (of 180 mg) Capsule SR 24 HR Oral daily, Doxepin HCl 1 Capsule (of 25 mg) Oral daily, Lisinopril 1 Tablet Oral daily, LORazepam 0.5 Tablet Oral b.i.d. PRN, Synthroid 1 (100 mcg) Tablet Oral daily, Vitamin B12 1 Tablet Oral daily, Vitamin D3 1 Tablet (of 1000 mg) Oral daily Allergies: Codeine Sulfate Review of Systems: Constitutional - He feels good. He does light work in and around the house. His appetite is good and weight is down about 5 lbs. No fever, night sweats, or hot flashes. ECOG score is 1, ENMT - He has occasional sinus drainage. No mouth sores. No sore throat or difficulty swallowing. He has a trachostomy in place, Hematologic/Lymphatic - He bruises easily, Respiratory - He gets short of breath with exertional activity. No cough. No pleuritic pain or hemoptysis, Cardiovascular - No angina pain. No palpitations, Gastrointestinal - No nausea or vomiting. No heartburn or acid reflux. No diarrhea or constipation. No blood in the stool or black stools, Genitourinary (M) - No dysuria or hematuria. He has urinary frequency both day and night. No urgency or incontinence, Musculoskeletal - No joint or bone pain, Integumentary - No skin complications, Neurologic - No headache or dizziness. No numbness or tingling. No other focal neurologic symptoms, Psychiatric - He has anxiety. No depression. No insomnia. Vital Signs: Performed on Oct 27, 2019 16:06 Height - 72.00 in Weight - 180.0 lbs (LOW) BSA - 2.04 sq.m BMI - 24.41 Temperature - 98.3 F (LOW) Pulse - 88 /min Respiration - 24 /min BP - 159/99 mm(hg) (HIGH) O2 Sat - 91 % (LOW) Pain - 0 Physical Examination: Constitutional - He looks pretty good generally, Eyes - Sclerae nonicteric. Conjunctivae clear, ENMT - Mouth is dry. There are no lesions noted in the oral cavity, Neck - There is just mild induration in the neck. The tracheostomy site loos OK. There is no mass or thyromegaly noted, Hematologic/Lymphatic - No cervical, clavicular, or axillary adenopathy, Respiratory - Lungs sound clear with diminished air movement bilaterally, Cardiovascular - Heart rhythm is regular. There is no murmur, gallop, or rub noted, Abdomen - Soft. Liver and spleen are not enlarged. There is no abdominal mass or ascites noted and there is no inguinal adenopathy, Extremities - No edema, Neurologic - No focal neurologic deficits noted. Lab/Imaging: Test performed on Oct 23, 2019 09:15 Sodium 129 mmol/L Potassium 4.6 mmol/L Chloride 88 mmol/L CO2 27 mmol/L Anion Gap 18.6 BUN 18 mg/dL Creatinine 0.9 mg/dL Cr Clearance (Est) 97.1300 mL/min eGFR 84.7 mL/min Glucose 105 mg/dL Calcium 9.5 mg/dL Protein, Total 7.8 g/dL Albumin 4.5 g/dL Globulin 3.3 g/dL Bilirubin, Total 0.5 mg/dL ALT (SGPT) 24 U/L AST (SGOT) 22 U/L Alkaline Phosphatase 69 IU/L WBC 10.4 10 3/uL RBC 5.44 10 6/uL HGB 17.3 g/dL HCT 51.7 % MCV 95.0 fL MCH 31.8 pg MCHC 33.5 g/dL RDW 14.0 % Platelet Count 222 10 3/cmm MPV 9.5 fL Neutrophils 7.9 10 3/uL Lymphocytes 1.1 10 3/uL Monocytes 1.1 10 3/uL Eosinophils 0.1 10 3/uL Basophils 0.1 10 3/uL Neutrophil % 76.2 % Lymphocyte % 10.2 % Monocyte % 10.7 % Eosinophil % 1.3 % Basophils % 1.2 % NRBC % 0 % Impression: 1. Patient with moderately differentiated squamous carcinoma of hypopharynx, clinical stage INDRA (T4, N1, M0). He was given primary concurrent chemoradiation with bolus cisplatin 100 mg/m??? on days 1, 22, and 43 with the last dose delivered on 10/25. He completed radiation on 11/03/2011. 2. Followup up neck CT on 01/05/12 raised a concern for a residual disease, but PET/CT on 01/12/12 had no hypermetabolic activity in the neck. CT neck on 09/01/2015 this further decrease in soft tissue mass. 3. He developed radiation related hypothyroidism. His other medical illnesses include: 4. COPD 5. Obstructive sleep apnea. 6. He has nicotine dependence (cigarettes). There was a new 3.9 mm pulmonary nodule in the left upper lobe on his CT scans from September and April 2017. These were not evident on his repeat CT scans in October 2017. Chronic changes in the left aryepiglottic fold and left false vocal cord on the neck CT appeared stable. He continued on observation/expectant management, and his repeat chest CT scan on 10/18/2018 showed no change in the tiny subpleural pulmonary nodules, but they were not evident on the current study. During follow-up he has continued to have somewhat limited activity tolerance, mainly due to to shortness of breath. Overall, though, he has been stable clinically with no evidence of recurrence of the laryngeal cancer. Plan: He remains on observation/expectant management. I will see him again in 1 year. Signed By: Mauro Echevarria M.D. <<Signature on File>>
== END 2019-10-27 15:59 | disposition home or self-care (01) ==
LOC: ONCMED 16:03
PROVIDERS: PCP Physician Assistant Medical; Visit Provider Internal Medicine Medical Oncology
DX: Z08 Encounter for follow-up examination after completed treatment for malignant neoplasm (principal); Z85.818 Personal history of malignant neoplasm of other sites of lip, oral cavity, and pharynx; R91.8 Other nonspecific abnormal finding of lung field; J44.9 Chronic obstructive pulmonary disease, unspecified; G47.30 Sleep apnea, unspecified; F17.210 Nicotine dependence, cigarettes, uncomplicated; Z92.3 Personal history of irradiation; Z92.21 Personal history of antineoplastic chemotherapy
CPT/HCPCS: G0463

== ENCOUNTER 2019-12-11 22:56 | Inpatient (IN) | payer MEDICARE, SELFPAY ==
[2019-12-11 22:59] VITALS: BP 86/60; PULSE 79; RESP 18; TEMP 36.7; O2SAT 87; BMI 24.4
--- NOTE | 2019-12-11 23:05 | W.ED.SOB ---
HPI - SOB/Dyspnea General: Stated Complaint: DIRECT ADMIT Time Seen by Provider: 12/11/19 23:00 Source: patient and EMS Mode of arrival: EMS Limitations: no limitations History of Present Illness: HPI Narrative: 64-year-old male who is here as a transfer from [facility] for direct admission to the ICU. Patient there was found to have a small bowel obstruction with a likely aspiration pneumonia. Patient cleared in the ER here for COVID-like symptoms. He denies any fever. Associated symptoms: Deny abdominal pain, chest pain, fever(s), nausea or vomiting Review of Systems Const: Denies: fever(s), chills, body aches or change in appetite Eyes: Denies: blurry vision or eye discomfort ENMT: Denies: throat pain or dental pain Card: Denies: chest pain Resp: Reports: dyspnea GI: Denies: abdominal pain, nausea, vomiting or diarrhea : Denies: dysuria Musc: Denies: neck pain or back pain Skin/Breast: Denies: rash Neuro: Denies: headache(s) Psych: Denies: depression Max/Lymph: Denies: easy bruising All/Imm: Denies: urticaria PFSH ED PFSH: Medical History (Updated 12/11/19 @ 23:08 by Obi Henry MD) Anxiety and depression COPD (chronic obstructive pulmonary disease) Medical management Diabetes GERD (gastroesophageal reflux disease) Hypertension 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 Completed 3 doses of cisplatin, last dose on 10/26/2011 Completed radiation therapy on 11/03/2011 Tobacco abuse Surgical History History of laparoscopic cholecystectomy (~2014) 02/17/2016 History of tracheostomy (~2011) Tracheostomy placement on 09/04/2011 Status post insertion of percutaneous endoscopic gastrostomy (PEG) tube PEG tube placed on 09/01/2011 Family History Grandmother Heart disease Sister Heart disease Denies family history of Anesthesia complication Bleeding disorder Social History Smoking and tobacco status: current every day smoker cigarettes Packs smoked per day: 1 Quit status (tobacco): has tried quititng Second hand smoke exposure: No Alcohol intake: never Adopted: No Caregiver/support person: Yes Lives independently: Yes Household members: spouse and family Housing: House Marital status: Number of children: 2 Number of grandchildren: 2 service: No Current occupational status: employed and retired Current occupational exposures/hazards: No Pets and animals: Yes History of recent travel: No Leisure activites: games Sexually active: Yes Current gender identity: Male Luli/Zoroastrianism: Yazidism Special luli needs: No Agree to transfusion: No Financial difficulty paying for basics: Decline to Answer Physical Exam Const: COMMON NORMALS: patient oriented x3 GENERAL APPEARANCE: ill appearing HENMT: COMMON NORMALS: normocephalic and atraumatic HEAD & SCALP: normocephalic and atraumatic Eye: COMMON NORMALS: Equal, round and reactive pupils present and EOMs intact bilaterally PUPIL: Yes Equal, round and reactive pupils present Neck/C-Spine: COMMON NORMALS: full ROM and supple Chest: COMMONS NORMALS: normal inspection of the chest and normal palpation of entire chest wall Resp: COMMON NORMALS: normal respiratory effort, No retractions, No use of accessory muscles and clear to auscultation bilaterally AUSCULTATION: clear to auscultation bilaterally Cardio: COMMON NORMALS: regular rate, regular rhythm and No murmurs present (Cardio) RATE: regular rate RHYTHM: regular rhythm GI: COMMON NORMALS: Normal to inspection, nondistended, normoactive bowel sounds present, Soft to palpation, non-tender and no masses PALPATION: Yes Soft to palpation Extremity: COMMON NORMALS: normal to inspection and full ROM Neuro: COMMON NORMALS: patient oriented x3, moves all extremities and no focal motor deficits Psych: COMMON NORMALS: mental status grossly normal, Normal thought process present and cooperative THOUGHT PROCESS: Normal thought process present Skin: COMMON NORMALS: no rashes or lesions noted and no wounds GENERAL SKIN EXAM: no rashes or lesions noted MDM - SOB/Dyspnea MDM Narrative: Medical decision making narrative: Patient presents here for transfer for admission directly to the ICU. Patient stopped to the ER from COVID medical clearance. Patient's had no recent contact. Will admit to the ICU to Dr. Macedo. Discharge Plan Discharge Patient Disposition: Admitted As Inpatient Clinical Impression: SBO (small bowel obstruction), Pneumonia Condition: Stable Prescriptions: No Action lisinopril 5 mg tablet 5 mg PO BID RF: 0 levothyroxine 100 mcg capsule 100 mcg PO ONCE RF: 0 bupropion HCl 150 mg tablet extended release 24 hr 150 mg PO BID RF: 0 doxepin 25 mg capsule 25 mg PO ONCE RF: 0 amitriptyline 50 mg tablet 50 mg PO ONCE RF: 0 pantoprazole [Protonix] 40 mg tablet,delayed release (DR/EC) 40 mg PO BID RF: 0 cyclobenzaprine 10 mg tablet 10 mg PO TID RF: 0 lovastatin 10 mg tablet 10 mg PO ONCE RF: 0 Referrals: Gutierrez Friedman [Primary Care Provider] - Coding Level of Care Code ED [employer] for [facility]
[2019-12-11 23:38] VITALS: BP 102/74; PULSE 80; RESP 18; O2SAT 88
--- NOTE | 2019-12-11 23:50 | PM.HP ---
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 Patient was admitted in May for similar complaint when his bowel obstruction was managed medically and he was discharged home with follow-up with . Patient is stating that he went to a restaurant with his daughter, after her meal yesterday around evening he started experiencing abdominal pain and cramps which got worse the next day, since yesterday he has not passed much flatus, his belly is getting distended, he had a very small bowel movement, he has been experiencing constipation for quite some time, he went to the [facility] where he vomited when they were doing CT scan. He is denying fever, chest pain, palpitations, shortness of breath. Patient endorses to choking on his drink during his meal yesterday as well. He was given magnesium citrate to relieve his abdominal discomfort which did not help him at all. [facility] called hospitalist Dr. Colunga around 5:18 PM, I was informed about the transfer at 7:30 PM at the start of my shift. I called [facility] to get the report around 8 PM History was noted, labs and imaging reviewed with the ER physician: Leukocytosis white count 11, polycythemia, lactic acid 2.9 which improved to 2.7 after fluids agitation, chest x-ray negative, sodium 122, potassium 6 which improved to 5.4 after fluids, TSH 6.9, CRP 7.5, magnesium 6, troponin XX 7, 2-hour troponin XX 1, dark yellow urine without signs of UTI, CT abdomen showed small bowel obstruction versus ileus it was done without contrast, Considering leukocytosis, high lactic acid and hypotension heparin was started for concern of ischemic bowel Levophed was also started because of his soft blood pressure his systolic blood pressure was 73/54mmhg when vasopressors were started Following has been administered at the other facility: IV fluid resuscitation 4 L, IV opioids morphine 2 mg, IV vancomycin, Zosyn, heparin gtt and vasopressors At the time of my evaluation patient's blood pressure was 81/7o mmhg, pulse in 70s, patient was complaining of 8/10 abdominal pain, abdomen distended tender on palpation Requested another CT scan to see if there is any deterioration in his underlying bowel obstruction Heparin and vasopressor at the bedside Review of Systems Const: Reports: chills, body aches and fatigue; Denies: fever(s) Eyes: Denies: change in vision ENMT: Reports: throat pain, oral sores and dry mouth Card: Denies: chest pain Resp: Denies: dyspnea GI: Reports: abdominal pain, nausea, vomiting, early satiety, constipation and bloating : Denies: flank pain Musc: Denies: neck pain Skin/Breast: Denies: rash Neuro: Denies: headache(s) Psych: Denies: anxiety Endo: Denies: polyuria Max/Lymph: Denies: easy bruising All/Imm: Denies: urticaria Medications/Allergies Home Medications Medication Instructions Recorded Confirmed Last Taken Type amitriptyline 50 mg tablet 50 mg PO ONCE 05/22/19 07/09/19 Unknown History bupropion HCl 150 mg 24 hr tablet, 150 mg PO BID tab 05/22/19 07/09/19 Unknown History extended release cyclobenzaprine 10 mg tablet 10 mg PO TID 05/22/19 07/09/19 Unknown History doxepin 25 mg capsule 25 mg PO ONCE cap 05/22/19 07/09/19 Unknown History levothyroxine 100 mcg capsule 100 mcg PO ONCE 05/22/19 07/09/19 Unknown History lisinopril 5 mg tablet 5 mg PO BID 05/22/19 07/09/19 Unknown History lovastatin 10 mg tablet 10 mg PO ONCE 05/22/19 07/09/19 Unknown History pantoprazole 40 mg tablet,delayed 40 mg PO BID tab 05/22/19 07/09/19 Unknown History release Allergies Allergy/AdvReac Type Severity Reaction Status Date / Time codeine Allergy Unknown Unknown Verified 07/09/19 13:44 metoprolol Allergy Unknown Unknown Verified 07/09/19 13:44 PFSH Acute PFSH: Medical History (Updated 12/12/19 @ 02:22 by Carlin Dawson MD) ADHD Anxiety and depression COPD (chronic obstructive pulmonary disease) t Diabetes GERD (gastroesophageal reflux disease) Hypertension 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 Completed 3 doses of cisplatin, last dose on 10/26/2011 Completed radiation therapy on 11/03/2011 Tobacco abuse Surgical History (Updated 12/12/19 @ 02:22 by Carlin Dawson MD) History of laparoscopic cholecystectomy (~2014) 02/17/2016 History of tracheostomy (~2011) Tracheostomy placement on 09/04/2011 S/P hernia surgery Status post insertion of percutaneous endoscopic gastrostomy (PEG) tube PEG tube placed on 09/01/2011 Family History Grandmother Heart disease Sister Heart disease Denies family history of Anesthesia complication Bleeding disorder Social History Smoking and tobacco status: current every day smoker cigarettes Packs smoked per day: 1 Quit status (tobacco): has tried quititng Second hand smoke exposure: No Alcohol intake: never Adopted: No Caregiver/support person: Yes Lives independently: Yes Household members: spouse and family Housing: House Marital status: Number of children: 2 Number of grandchildren: 2 service: No Current occupational status: employed and retired Current occupational exposures/hazards: No Pets and animals: Yes History of recent travel: No Leisure activites: games Sexually active: Yes Current gender identity: Male Luli/Cheondoism: Religion Special luli needs: No Agree to transfusion: No Financial difficulty paying for basics: Decline to Answer Vitals/I&O/Wt Last Vital Signs Temp 98.1 F 12/11/19 22:59 Pulse 80 12/11/19 23:38 Resp 20 H 12/12/19 01:17 BP 102/74 12/11/19 23:38 Pulse Ox 90 12/12/19 01:17 Weight last 48 hrs Weight 87.226 kg Weight 81.647 kg Physical Exam Narrative: EXAM NARRATIVE: Head to toe examination Patient seems to be in distress because abdominal distention Systolic blood pressure in 90s On 15 L oxygen mask saturating 90% S1, S2 no tachycardia Clinically he looks dehydrated with dry mucous membrane Abdomen has tenderness which is inproportionate to palpation, bowel sounds absent, something with bowel sounds around mid epigastric area Tracheostomy collar without active drainage Neurologically nonfocal exam Lower extremity no signs of edema gangrene ulcer Patient seems irritable and anxious because abdominal distention Data : 12/12/19 01:25 12/12/19 01:25 A&P Assessment and plan (1) SBO (small bowel obstruction): Status: Acute (2) Aspiration pneumonia: Status: Acute (3) Hypothyroidism: Status: Acute (4) COPD (chronic obstructive pulmonary disease): Status: Acute (5) Tracheostomy care: Status: Acute Additional A&P Information Recurrent small bowel obstruction N.p.o., NG to suction CT abdomen reviewed Leukocytosis, lactic acidemia, hypotension and abdominal tenderness, concern for bowel ischemia, studies are done without contrast, however patient is not endorsing melena or bright bleed per rectum Fluid resuscitation with normal saline, Dilaudid for pain management, Zosyn for anaerobic coverage and gram-negative microorganisms We will inform Dr. Redd No free air noticed, no bowel perforation, no acute surgical indication Repeat lactic acid and blood work Aspiration pneumonia Sepsis secondary to pneumonia: Sepsis criteria met with tachycardia which was evident of the vitals sheet and blood work at the outside facility, high lactic acid, hypotension, tachycardia, he had received 4 L of fluid along vancomycin and Zosyn Considering his underlying multiple comorbid conditions I would cover MRSA and Pseudomonas with vancomycin and Zosyn Blood culture to be obtained Tracheostomy care Acute on chronic hypoxic respiratory failure causing COPD exacerbation Secondary to aspiration pneumonia Was requiring oxygen mask 15 L/min at home he is using 2 L at baseline DuoNeb treatment Tracheostomy care Acute kidney injury I believe this is secondary to hypoperfusion and abdominal distention Monitor kidney function, currently on IV fluids, vasopressors Goals of care discussed with the patient, he is full code DVT prophylaxis not needed currently he is on heparin for concern of ischemic bowel N.p.o. Attestations Medical Necessity Statement*: Anticipating stay in the hospital course more than 2 midnight currently in management for SBO Time Spent in Patient Care: (>than 50% of time spent in counselling and/or direct pt care on unit). 60mins Coding Level of Care Code Acute [employer] Attendant for [facility] Fwd Diagnoses SBO (small bowel obstruction) K56.609 Aspiration pneumonia J69.0 Hypothyroidism E03.9 COPD (chronic obstructive pulmonary disease) J44.9 Tracheostomy care Z43.0
[2019-12-12] VITALS (82 sets, daily range): BP systolic 75–116; BP diastolic 47–76; PULSE 75–97; RESP 8–32; TEMP 36.6–37.3; O2SAT 86–93; BMI 26.0
--- NOTE | 2019-12-12 00:19 | CTR_ITS ---
PROCEDURE INFORMATION: Exam: CT Abdomen And Pelvis Without Contrast Exam date and time: 12/12/2019 12:23 AM Age: 64 years old Clinical indication: Condition or disease; Other: Sbo TECHNIQUE: Imaging protocol: Computed tomography of the abdomen and pelvis without contrast. Radiation optimization: All CT scans at this facility use at least one of these dose optimization techniques: automated exposure control; mA and/or kV adjustment per patient size (includes targeted exams where dose is matched to clinical indication); or iterative reconstruction. COMPARISON: CT abdomen pelvis w con* [id number] 05/26/2019 3:52 PM RADIATION DOSE METRICS: Total DLP (mGy-cm): 1227.87 FINDINGS: Liver: The liver is normal. Gallbladder and bile ducts: The gallbladder is absent. There is ectasia of the common bile duct and central intrahepatic ducts. Pancreas: The pancreas is unremarkable. Spleen: Splenic size is normal. There are scattered calcifications consistent with healed granulomas. Adrenals: The adrenal glands are unremarkable. Kidneys and ureters: There is a nonobstructive stone in the left kidney. No hydronephrosis or ureteral dilation. The right kidney and ureter are unremarkable. Stomach and bowel: There is a high-grade distal small-bowel obstruction with transition point in the central lower abdomen (axial series 2, image [id number]). Findings are similar to 05/26/2019. The stomach is fluid distended. The small bowel is diffusely markedly dilated and fluid and gas filled. The colon is unremarkable. Appendix: The appendix is normal. Intraperitoneal space: There is mild mesenteric edema. There is no intraperitoneal free air. 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 There is moderate aortic atherosclerotic disease. Lymph nodes: There is no lymphadenopathy in the retroperitoneum, mesentery, pelvis or inguinal regions. Bladder: The Hendrix catheter is appropriately positioned with the bulb and tip within the bladder lumen. The urinary bladder is decompressed, preventing meaningful evaluation of wall thickness. Reproductive: There is nonspecific mild enlargement of the prostate gland. Bones/joints: There is a chronic right L5 pars defect. There is mild degenerative disease in the lumbar spine. The pelvis and hips are intact. Soft tissues: The abdominal wall is intact. Other findings: There is extensive opacification of the dependent portions of both lower lobes. CT/CT abdomen pelvis wo con [id number] IMPRESSION: 1. High-grade distal small-bowel obstruction. The findings are similar to 05/26/2019. 2. Bilateral lower lobe consolidation and/or atelectasis. Possible infection. 3. Incidental findings above. Radiation Dose CTDIVOL = (mGy): DLP = 1227.87 (mGy-cm)
[2019-12-12] MEDS: HYDROmorphone 1 mg/mL INJ 1 mL 2 MG IVP ×6 (01:17→23:18)
[2019-12-12] MEDS: sodium chloride 0.9% 1,000 ML 75 ML IV ×2 (01:22→14:21)
[2019-12-12 01:44] LABS: Basophils # 0.1 10^3/uL (0.0-0.1); Basophils % 1.2 %; Eosinophils # 0.1 10^3/uL (0.0-0.8); Eosinophils % 1.5 %; Hematocrit 50.4 % (42.0-52.0); Hemoglobin 17.3 g/dL (11.7-16.6); Lymphocytes # 0.4 10^3/uL (0.8-4.8); Lymphocytes % 5.6 %; Mean Corpuscular HGB Conc 34.3 g/dL (30.0-36.0); Mean Corpuscular Hemoglobin 31.2 pg (28.0-34.0); Mean Corpuscular Volume 90.8 fL (80-94); Mean Platelet Volume 9.8 fL (7.4-10.4); Monocytes % 13.6 %; Neutrophils # 5.69 10^3/uL (1.8-7.7); Neutrophils % 77.7 %; Nucleated Red Blood Cells % 0 %; Platelet Count 255 10^3/cmm (130-400); Red Blood Count 5.55 10^6/uL (4.1-5.3); Red Cell Distribution Width 14.3 % (12.1-15.1); White Blood Count 7.3 10^3/uL (4.0-10.0)
[2019-12-12 01:52] LABS: Anion Gap 18.1 (5-19); Blood Urea Nitrogen 50 mg/dL (8-23); Calcium 7.6 mg/dL (8.5-10.5); Carbon Dioxide 22 mmol/L (22-29); Chloride 93 mmol/L (98-107); Glomerular Filtration Rate 33.7 mL/min (90-130); Glucose 173 mg/dL (65-115); Osmolality Calculated 268 mOsm/kg (285-295); Potassium 5.1 mmol/L (3.5-5.1); Sodium 128 mmol/L (136-145)
[2019-12-12 01:53] LABS: Lactate (Lactic Acid level) 2.2 mmol/L (0.5-2.2)
[2019-12-12] MEDS: heparin drip 25,000 UNIT/500 ML PREMIX 23 UNIT IV (02:02)
--- NOTE | 2019-12-12 02:48 | XRR_ITS ---
PROCEDURE INFORMATION: Exam: XR Abdomen, 1 View Exam date and time: 12/12/2019 3:09 AM Age: 64 years old Clinical indication: Device placement; Gi device; Nasogastric tube; Additional info: Ng placed TECHNIQUE: Imaging protocol: XR of the abdomen. Views: Frontal supine view of the abdomen. 1 View. COMPARISON: CT abdomen pelvis con [id number] 12/12/2019 12:42 AM FINDINGS: Tubes, catheters and devices: Enteric tube tip resides left upper quadrant. Gastrointestinal tract: Prominent stool in the right abdomen. Prominent gas distention of bowel diffusely in the central and upper abdomen. Organs: Cholecystectomy surgical clips right upper quadrant. Bones/joints: Unremarkable. XR/XR KUB portable [id number] IMPRESSION: 1. Compared to CT there is persistent marked gaseous distention of bowel diffusely limited in detailed assessment by only supine image. 2. Prominent fecal debris in the right low abdomen.
[2019-12-12] MEDS: calcium gluconate 0.1 gm/mL 10% SDV 10mL 1 GM IVP (02:59)
[2019-12-12] MEDS: piperacillin-tazobactam 3.375 GM in sodium chloride 0.9% (plus) 50 ML IV ×2 (03:09→19:04)
--- NOTE | 2019-12-12 04:32 | PC.NURSE ---
Patient pulled Bipap off, refusing abg and morning labs to be drawn. Patient states If you draw blood from me you are murdering me . Explained to patient that we need to draw some blood to see how she is doing. Patient refuses and pulls off pulse ox. Notified Dr. Dawson of patient condition and patient refusing to have blood drawn. Order given for haldol.
[2019-12-12] MEDS: heparin 5,000 unit/mL INJ 1 mL 5000 UNIT SUBCUT ×3 (06:44→21:48)
[2019-12-12] MEDS: lanolin oint 7 gm 1 APPLIC TOPICAL (06:54)
--- NOTE | 2019-12-12 07:51 | P.CONIM_ITS ---
Providers/Reason For Consult Consulting Physican/Specialty*: General Surgery Jamarcus Redd MD Reason for Consult*: Small bowel obstruction. Attending Physician: Carlin Dawson MD Primary Care Provider: Gutierrez Friedman History of Present Illness History of Present Illness Greg Stephens is a 64 year old male transferred from [facility] in [place] last night with evidence of a small bowel obstruction on CT. The night before last the patient had abdominal pain after eating dinner. He denies passing much flatus and noticed that his abdomen was getting distended and uncomfortable. He had episodes of vomiting. He went to [facility] and apparently was given some magnesium citrate to hopefully relieve his abdominal discomfort. A CAT scan showed that he was obstructed. He was reportedly started on a heparin drip for possible bowel ischemia but a nasogastric tube was not placed until he ended up being transferred to [place] for further management. The patient says he started feeling better after the nasogastric tube was placed. His heparin drip was discontinued. He still does have some discomfort. Review of Systems General: Reports: 10 or more systems reviewed and unremarkable except in HPI and below Const: Denies: fever(s) GI: Reports: abdominal pain, bloating and GI cramping Meds/Allergies Home Medications and Allergies Home Medications Medication Instructions Recorded Confirmed Last Taken Type bupropion HCl 150 mg 24 hr tablet, 150 mg PO BID tab 05/22/19 12/12/19 12/11/19 06:00 History extended release doxepin 25 mg capsule 25 mg PO BEDTIME PRN cap 05/22/19 12/12/19 12/10/19 21:00 History levothyroxine 100 mcg capsule 112 mcg PO DAILY 05/22/19 12/12/19 12/11/19 06:00 History lisinopril 5 mg tablet 5 mg PO DAILY 05/22/19 12/12/19 12/11/19 06:00 History cholecalciferol (vitamin D3) 25 mcg PO DAILY 12/12/19 12/12/19 12/11/19 06:00 History cyanocobalamin (vitamin B-12) 250 mcg PO DAILY 12/12/19 12/12/19 12/11/19 06:00 History diltiazem HCl 180 mg PO DAILY 12/12/19 12/12/19 12/11/19 06:00 History ipratropium-albuterol [Combivent 1 puff INHALATION QID 12/12/19 12/12/19 12/11/19 12:00 History Respimat] lorazepam TID PRN 12/12/19 Unknown History nystatin 1 applic TOPICAL BID 12/12/19 12/12/19 Unknown History sildenafil (pulm.hypertension) 20 mg PO PRN PRN 12/12/19 12/12/19 Unknown History Allergies Allergy/AdvReac Type Severity Reaction Status Date / Time codeine Allergy Unknown Unknown Verified 07/09/19 13:44 metoprolol Allergy Unknown Unknown Verified 07/09/19 13:44 Current Medications Current Medications Generic Name Dose Route Start Last Admin Trade Name Freq PRN Reason Stop Dose Admin Heparin Sodium (Beef Lung) 5,000 unit 12/12/19 06:15 12/12/19 06:44 Heparin SUBCUT 5,000 unit Q8H WHITNEY Administration Hydromorphone HCl 2 mg 12/12/19 01:00 12/12/19 04:54 Dilaudid Inj IVP 2 mg Q4H PRN Administration pain Sodium Chloride 1,000 mls @ 75 mls/hr 12/12/19 01:00 12/12/19 01:22 Sodium Chloride 0.9% IV 75 mls/hr .[id number] WHITNEY Administration Piperacillin Sod/Tazobactam 50 mls @ 12.5 mls/hr 12/12/19 03:45 12/12/19 03:09 Sod 3.375 gm/ Sodium Chloride IV 12.5 mls/hr Q12H WHITNEY Administration Protocol Norepinephrine Bitartrate 4 mg 254 mls @ 0 mls/hr 12/12/19 02:15 12/12/19 02:48 / Dextrose IV 10 mcg/min .Q0M WHITNEY 38.1 mls/hr Administration Protocol Per Protocol Lanolin 1 applic 12/12/19 06:43 12/12/19 06:54 Lanolin Oint TOPICAL 1 applic PRN PRN Administration DRYNESS PFSH Acute PFSH: Medical History (Updated 12/12/19 @ 08:00 by Jamarcus Redd MD) ADHD Anxiety and depression COPD (chronic obstructive pulmonary disease) Diabetes GERD (gastroesophageal reflux disease) Hypertension 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 Completed 3 doses of cisplatin, last dose on 10/26/2011 Completed radiation therapy on 11/03/2011 Tobacco abuse Surgical History (Updated 12/12/19 @ 08:40 by Jamarcus Redd MD) History of laparoscopic cholecystectomy (~2014) 02/17/2016 History of right inguinal hernia repair [place], [place] History of tracheostomy (~2011) Tracheostomy placement on 09/04/2011 Previous tonsillectomy/surgery for obstructive sleep apnea Status post insertion of percutaneous endoscopic gastrostomy (PEG) tube PEG tube placed on 09/01/2011 /subsequently removed Family History Grandmother Heart disease Sister Heart disease Denies family history of Anesthesia complication Bleeding disorder Social History Smoking and tobacco status: current every day smoker cigarettes Packs smoked per day: 1 Quit status (tobacco): has tried quititng Second hand smoke exposure: No Alcohol intake: never Adopted: No Caregiver/support person: Yes Lives independently: Yes Household members: spouse and family Housing: House Marital status: Number of children: 2 Number of grandchildren: 2 service: No Current occupational status: employed and retired Current occupational exposures/hazards: No Pets and animals: Yes History of recent travel: No Leisure activites: games Sexually active: Yes Current gender identity: Male Luli/Restorationism: Jainism Special luli needs: No Agree to transfusion: No Financial difficulty paying for basics: Decline to Answer Vitals/I&O/Wt Last Vital Signs Temp 98.4 F 12/12/19 04:00 Pulse 84 12/12/19 06:00 Resp 12 12/12/19 06:00 BP 112/66 12/12/19 06:00 Pulse Ox 90 12/12/19 06:00 12/11/19 12/12/19 12/12/19 22:59 06:59 14:59 Intake Total 500 / 500 Output Total 1050 / 1050 Balance -550 / -550 Weight last 48 hrs Weight 197 lb 11.2 oz Weight 192 lb 4.8 oz Weight 180 lb Physical Exam Narrative: EXAM NARRATIVE: The patient was examined in his ICU room. He has a nasogastric tube in place is draining bilious material. He has a tracheostomy. The pupils seem equal. No carotid bruits are heard. The lungs are clear anteriorly. The heart seems regular but the heart sounds are somewhat distant. The abdomen is somewhat distended and has few bowel sounds. The patient has some scattered tenderness, particular around the umbilical area and slightly below. He has a small umbilical hernia which is soft. The site of his previous PEG tube insertion is evident. The extremities reveal no edema. Neurologically the patient appears to be grossly intact. Data Micro: Micro: Microbiology 12/12/19 02:55 Bacterial Antigens - Final Urine,Voided 12/12/19 02:55 Legionella Urinary Antigen - Final Urine Catheterize d 12/12/19 03:10 Blood Culture - Pr eliminary Blood SPECIMEN [facility] JESSE 12/12/19 03:05 Blood Culture - Pr eliminary Blood SPECIMEN [facility] A&P Assessment and plan (1) SBO (small bowel obstruction): The patient has had several episodes of this. He has not had much in the way of abdominal surgery, only laparoscopy for his cholecystectomy and placement of a PEG tube. His right inguinal hernia was fixed following other episodes of small bowel obstructions. His small umbilical hernia obviously has nothing to do with this. He does currently have evidence of a high-grade distal small bowel obstruction on his CAT scan. His small bowel is significantly dilated. He is feeling better following placement of the nasogastric tube, but his exam is still somewhat concerning for tenderness. His white blood cell count is normal, but he will need to be watched closely. Status: Acute Consult Attestations Medical Necessity Statement: See admitting service's notation. Coding Level of Care Code Acute Library Historian for [facility] Diagnoses SBO (small bowel obstruction) K56.609
--- NOTE | 2019-12-12 10:04 | PC.CHAP ---
Pastoral Care Encounter/Spiritual Assessment Type of Contact [] Declined survey research center director visit [] Patient/Family/Request visit [] Outpatient visit [] Follow-up visit [] Physician referral [] Code/Alert [x] Routine visit [] Staff referral [] Actively dying [] Patient sleeping [] Family support [] [] Out of room [] Palliative care [] [] Receiving care in room [] Pre-surgical visit [] Trauma [] Long length of stay [] ICU visit [] Other: Relational/Emotional Strength [] Patient feels connected with others/family/visitors/staff [] Distress [] Loneliness/isolation [] Abandonment Spirituality of Patient [] Person of Luli [] Attends Cheondoism of their Luli [] Believes in Prayer [] Reads Bible or Amish materials [] There are Spiritual issues to be addressed Leather Sprayer Interventions [x] Prayer [x] Active listening [x] Non-anxious presence [x] Spiritual/emotional support [] Crisis/trauma care [] Spiritual counseling [] Bereavement support [] Provided bereavement packet [] Provided Bible/devotional materials [] Provided toy/stuffed animal, coloring book to patient or family member [] Provided Communion [] Anointing/[place] [] Salvation [x] Completed spiritual assessment [] Other: Impact on Illness or Injury [] Angry [] Fearful [] Anxious [] Often cries [] Exhaustion [] Unable to work [] Unable to attend church [] Unable to walk/stand [] Unable to read [] Unable to drive [] Unable to eat/drink [] Unable to sleep [] Unable to be with family [] Patient intubated [] Other: Summary Patient a wonderful man of luli. Resting well Time spent with patient 15 min
--- NOTE | 2019-12-12 13:13 | PC.NURSE ---
messaged Dr Machado regarding home medications needing looked at.
--- NOTE | 2019-12-12 14:00 | PC.RESP ---
Smoking Cessation and Pulmonary Rehab information sent to patient.
--- NOTE | 2019-12-12 15:04 | XRR_ITS ---
PROCEDURE INFORMATION: Exam: XR Chest, 1 View Exam date and time: 12/12/2019 3:42 PM Age: 64 years old Clinical indication: Other: Evalute for pneumonia; Prior surgery; Surgery type: Trach; Patient HX: HX of throat and skin cancer TECHNIQUE: Imaging protocol: XR of the chest Views: 1 view. COMPARISON: CR XR chest 2V* [id number] 12/11/2019 4:27 PM FINDINGS: Tubes, catheters and devices: There is an orogastric tube with tip in the stomach. Lungs: Nonspecific bibasilar consolidation is present, consistent with atelectasis, edema, or pneumonia. There is vascular congestion with cephalization of flow, interstitial edema and ground-glass opacities compatible with CHF. Pleural space: There are trace bilateral pleural effusions. No pneumothorax. Heart/Mediastinum: The heart is enlarged. Bones/joints: No acute abnormality. Other findings: There is a tracheostomy in good position. XR/XR chest 1V portable [id number] IMPRESSION: 1. Nonspecific bibasilar consolidation is present, consistent with atelectasis, edema, or pneumonia. 2. There is vascular congestion with cephalization of flow, interstitial edema and ground-glass opacities compatible with CHF.
[2019-12-12] MEDS: ipratropium-albuterol 3 mL Neb INHALATION ×2 (15:47→20:36)
--- NOTE | 2019-12-12 16:56 | PM.PN ---
Subjective Subjective: Interval history: overnigght labs, H&P reveiwed. Consult reveiwed. Continues on levophed @ 10, HGT output 1500cc, urin eoutput 400cc Vitals/I&O/Wt Last Vital Signs Temp 97.9 F 12/12/19 09:00 Pulse 89 12/12/19 15:52 Resp 17 12/12/19 15:51 BP 85/50 12/12/19 15:15 Pulse Ox 91 12/12/19 15:51 12/12/19 12/12/19 12/12/19 06:59 14:59 22:59 Intake Total 500 / 500 1225.732 / 1225.732 Output Total 1050 / 1050 900 / 900 Balance -550 / -550 325.732 / 325.732 Weight last 48 hrs Weight 89.675 kg Weight 87.226 kg Weight 81.647 kg Physical Exam Narrative: EXAM NARRATIVE: GEN: Awake, alert and oriented, ill appearing HEENT: NGT in place CVS: S1S2 N RS: CTA B/L except crackles over RUL Abd: Soft, nt/nd , bs+ HEALTH DATA ANALYST: no focal neuro deficits Urinary Catheter Management^: Hendrix: Cath Placed During This Visit: yes Urinary Catheter Date of Insertion: 12/12/19 Urinary Catheter Time of Insertion: 00:00 Data : 12/12/19 01:25 12/12/19 01:25 Micro: Microbiology 12/12/19 02:55 Bacterial Antigens - Final Urine,Voided 12/12/19 02:55 Legionella Urinary Antigen - Final Urine Catheterized 12/12/19 03:10 Blood Culture - Preliminary Blood SPECIMEN COLLECTED 12/12/19 03:05 Blood Culture - Preliminary Blood SPECIMEN COLLECTED A&P Assessment and plan (1) SBO (small bowel obstruction): Status: Acute (2) Aspiration pneumonia: Status: Acute (3) Hypothyroidism: Status: Acute (4) COPD (chronic obstructive pulmonary disease): Status: Acute (5) Tracheostomy care: Status: Acute (6) Septic shock: Status: Acute Additional A&P Information Septic shock requiring ICU admission : present on admission, as below Recurrent small bowel obstruction N.p.o., NG to suction CT abdomen with High-grade distal small-bowel obstruction. Trend lactate Leukocytosis, lactic acidemia, hypotension and abdominal tenderness Continue Fluid resuscitation with normal saline, Continue Zosyn for anaerobic coverage and gram-negative microorganisms Surgery consult appreciated No free air noticed, no bowel perforation Continue levophed Aspiration pneumonia Sepsis secondary to pneumonia: Sepsis criteria met with tachycardia which was evident of the vitals sheet and blood work at the outside facility, high lactic acid, hypotension, tachycardia, he had received 4 L of fluid Continue zosyn and vancomycin Blood culture to be obtained Tracheostomy care bacterial ag and urine legionella antigen negative Acute on chronic hypoxic respiratory failure causing COPD exacerbation Secondary to aspiration pneumonia Was requiring oxygen mask 15 L/min at home he is using 2 L at baseline DuoNeb treatment Tracheostomy care Acute kidney injury Likely 2/2 sepsis, ATN Continue IVF and pressors Full code DVT prophylaxis : Heparin s/c N.p.o. Attestations Medical Necessity Statement*: Septic shock, on pressors Coding Level of Care Code Acute Configuration Management Administrator for [facility] Diagnoses SBO (small bowel obstruction) K56.609 Aspiration pneumonia J69.0 Hypothyroidism E03.9 COPD (chronic obstructive pulmonary disease) J44.9 Tracheostomy care Z43.0 Septic shock A41.9; R65.21
[2019-12-12] MEDS: famotidine 20 mg/2 mL INJ IVP (19:04)
[2019-12-12] MEDS: ondansetron 2 mg/ML SDV 2 mL 4 MG IVP (23:21)
[2019-12-13] VITALS (26 sets, daily range): BP systolic 89–172; BP diastolic 53–92; PULSE 94–110; RESP 6–24; TEMP 36.6–37.2; O2SAT 89–97
[2019-12-13] MEDS: sodium chloride 0.9% 1,000 ML 125 ML IV ×3 (00:39→18:30)
[2019-12-13] MEDS: piperacillin-tazobactam 3.375 GM in sodium chloride 0.9% (plus) 50 ML IV ×2 (03:25→14:46)
[2019-12-13] MEDS: famotidine 20 mg/2 mL INJ IVP ×2 (03:25→14:47)
[2019-12-13] MEDS: ipratropium-albuterol 3 mL Neb INHALATION ×4 (03:59→20:04)
--- NOTE | 2019-12-13 04:13 | PC.NURSE ---
Patient resting in bed, reports having abdominal pain but states he does not want any pain medication. Offered to give patient a bath, patient states No . Patient appears upset but reports he does not need anything. V/S remain stable. Levophed drip off at present time.
[2019-12-13 04:25] LABS: Basophils # 0.1 10^3/uL (0.0-0.1); Basophils % 1.2 %; Eosinophils % 0.7 %; Hematocrit 44.1 % (42.0-52.0); Hemoglobin 14.7 g/dL (11.7-16.6); Lymphocytes # 0.7 10^3/uL (0.8-4.8); Lymphocytes % 12.4 %; Mean Corpuscular HGB Conc 33.3 g/dL (30.0-36.0); Mean Corpuscular Hemoglobin 31.7 pg (28.0-34.0); Mean Platelet Volume 9.9 fL (7.4-10.4); Monocytes # 0.8 10^3/uL (0.2-0.9); Monocytes % 13.1 %; Neutrophils # 4.23 10^3/uL (1.8-7.7); Neutrophils % 72.1 %; Nucleated Red Blood Cells % 0 %; Platelet Count 184 10^3/cmm (130-400); Red Blood Count 4.64 10^6/uL (4.1-5.3); White Blood Count 5.9 10^3/uL (4.0-10.0)
[2019-12-13 05:04] LABS: Alanine Aminotransferase 598 U/L (0-41); Albumin Level 3.1 g/dL (3.5-5.2); Alkaline Phosphatase 42 IU/L (40-130); Blood Urea Nitrogen 51 mg/dL (8-23); Calcium 7.3 mg/dL (8.5-10.5); Carbon Dioxide 26 mmol/L (22-29); Chloride 99 mmol/L (98-107); Glomerular Filtration Rate 40.7 mL/min (90-130); Glucose 96 mg/dL (65-115); NT Pro B Type Natriuretic Pept 159 pg/mL (0-125); Osmolality Calculated 274 mOsm/kg (285-295); Sodium 133 mmol/L (136-145); Total Bilirubin 0.3 mg/dL (0.15-1.2); Total Protein 6.1 g/dL (6.6-8.7)
[2019-12-13 05:05] LABS: Lactate (Lactic Acid level) 1.3 mmol/L (0.5-2.2)
[2019-12-13 05:06] LABS: Anion Gap 13.5 (5-19); Potassium 5.5 mmol/L (3.5-5.1)
[2019-12-13 05:07] LABS: Aspartate Amino Transferase 267 U/L (0-40)
[2019-12-13] MEDS: HYDROmorphone 1 mg/mL INJ 1 mL 2 MG IVP ×4 (05:32→23:53)
[2019-12-13] MEDS: heparin 5,000 unit/mL INJ 1 mL 5000 UNIT SUBCUT ×3 (05:32→22:45)
[2019-12-13] MEDS: LORazepam 2 mg/mL INJ 1 mL 0.5 MG IVP ×2 (06:01→13:03)
--- NOTE | 2019-12-13 06:03 | PC.NURSE ---
Patient reports that he feels like he is having a panic attack and is scared. Ativan 0.5mg given IVP as ordered, sitting at bedside with patient.
--- NOTE | 2019-12-13 06:13 | PC.NURSE ---
Resting comfortably, v/s stable, no distress noted.
--- NOTE | 2019-12-13 07:35 | P.PN_ITS ---
Subjective Subjective: Interval history: The patient reports that his abdomen is feeling a little bit better today. He still is unaware of any flatus. Vitals/I&O/Wt Last Vital Signs Temp 99.0 F 12/13/19 04:00 Pulse 100 12/13/19 06:00 Resp 13 12/13/19 06:00 BP 96/62 12/13/19 06:00 Pulse Ox 90 12/13/19 06:00 12/12/19 12/13/19 12/13/19 22:59 06:59 14:59 Intake Total 1095.25 / 3154.732 783.75 / 3154.732 Output Total 400 / 2450 1150 / 2450 Balance 695.25 / 704.732 -366.25 / 704.732 Weight last 48 hrs Weight 186 lb 8 oz Weight 197 lb 11.2 oz Weight 192 lb 4.8 oz Weight 180 lb Physical Exam Narrative: EXAM NARRATIVE: Bowel sounds remain hypoactive. The abdomen is softly distended today and I really cannot appreciate that much in the way of tenderness. Urinary Catheter Management^: Hendrix: Cath Placed During This Visit: yes Reason for Continuing Indwelling Catheter: Accurate Measurement of Urinary Output in Critically Ill Patients Urinary Catheter Date of Insertion: 12/12/19 Urinary Catheter Time of Insertion: 00:00 Data : 12/13/19 04:08 12/13/19 04:08 Micro: Microbiology 12/12/19 03:10 Blood Culture - Preliminary Blood NEGATIVE TO DATE 12/12/19 03:05 Blood Culture - Preliminary Blood NEGATIVE TO DATE 12/12/19 02:55 Bacterial Antigens - Final Urine,Voided 12/12/19 02:55 Legionella Urinary Antigen - Final Urine Catheterized A&P Assessment and plan (1) SBO (small bowel obstruction): White count remains normal. The patient's abdominal exam appears to be a little less concerning to me today, but he has not made any obvious progress with respect to return of his bowel function yet. Continue conservative management. Status: Acute Attestations Medical Necessity Statement*: See admitting service's notation. 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
--- NOTE | 2019-12-13 08:30 | PC.NURSE ---
Educated pt regarding importance of turn schedule and risks of developing DTI's and/or pressure sores. Pt indicated understanding yet maintained right to only turn when desired.
--- NOTE | 2019-12-13 11:51 | PC.NURSE ---
Sister called for update. Requested pt not be administered any blood thinners (specifically mentioned Aspirin) because of fear they would interfere with possible surgery on Sunday. Stated she is also a pt of Dr Jasso and knows his requirements regarding meds and surgery. Informed sister of dose and reasons why VTE prophylaxis prescribed, as well as no surgery scheduled at this time. Sister asked me to call physician for clarification. Dr Colunga notified per family's request. Orders to continue with Lovenox and Aspirin. Meds administered slightly late as a result.
--- NOTE | 2019-12-13 12:00 | PC.NURSE ---
Encouraged pt to turn. Pt has not repositioned all shift. Educated pt about bed sores. Indicated understanding. Pleasantly refused repositioning.
--- NOTE | 2019-12-13 13:11 | PC.NURSE ---
Pt stated he is starting to have a panic attack. Offered Ativan per order. Pt requested. Administered per order.
--- NOTE | 2019-12-13 14:09 | PM.PN ---
Subjective Subjective: Interval history: Off lveophed today since 3 am, not still passing flatus or BM tmax 99F Medications: Reviewed: Yes Vitals/I&O/Wt Last Vital Signs Temp 99.0 F 12/13/19 04:00 Pulse 101 H 12/13/19 14:06 Resp 18 12/13/19 14:06 BP 136/86 12/13/19 13:00 Pulse Ox 92 12/13/19 14:06 12/12/19 12/13/19 12/13/19 22:59 06:59 14:59 Intake Total 1095.25 / 2370.982 783.75 / 3154.732 993.75 / 993.75 Output Total 400 / 1300 1150 / 2450 Balance 695.25 / 1070.982 -366.25 / 704.732 993.75 / 993.75 Weight last 48 hrs Weight 84.595 kg Weight 89.675 kg Weight 87.226 kg Weight 81.647 kg Physical Exam Narrative: EXAM NARRATIVE: GEN: Awake, alert and oriented HEENT: NGT in place CVS: S1S2 N RS: CTA B/L except crackles over RUL Abd: Soft, nt/nd , bs+ 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: no focal neuro deficits Urinary Catheter Management^: Hendrix: Cath Placed During This Visit: yes Reason for Continuing Indwelling Catheter: Accurate Measurement of Urinary Output in Critically Ill Patients Urinary Catheter Date of Insertion: 12/12/19 Urinary Catheter Time of Insertion: 00:00 Data : 12/13/19 04:08 12/13/19 04:08 Micro: Microbiology 12/12/19 03:10 Blood Culture - Preliminary Blood NEGATIVE TO DATE 12/12/19 03:05 Blood Culture - Preliminary Blood NEGATIVE TO DATE A&P Assessment and plan (1) SBO (small bowel obstruction): Status: Acute (2) Aspiration pneumonia: Status: Acute (3) Hypothyroidism: Status: Acute (4) COPD (chronic obstructive pulmonary disease): Status: Acute (5) Tracheostomy care: Status: Acute (6) Septic shock: Status: Acute Additional A&P Information Recurrent small bowel obstruction N.p.o., NG to suction CT abdomen with High-grade distal small-bowel obstruction. Trend lactate , at 1.3 today Continue Fluid resuscitation with normal saline Continue Zosyn for anaerobic coverage and gram-negative microorganisms Surgery consult appreciated, continue conservative management No free air noticed, no bowel perforation off levophed now, septic shock improving Aspiration pneumonia Sepsis secondary to pneumonia: Sepsis criteria met with tachycardia which was evident of the vitals sheet and blood work at the outside facility, high lactic acid, hypotension, tachycardia, he had received 4 L of fluid Continue zosyn and vancomycin Blood culture to be obtained Tracheostomy care bacterial ag and urine legionella antigen negative Acute on chronic hypoxic respiratory failure causing COPD exacerbation Secondary to aspiration pneumonia Was requiring oxygen mask 15 L/min at home he is using 2 L at baseline DuoNeb treatment Tracheostomy care Acute kidney injury Likely 2/2 sepsis, ATN, improving Continue IVF Full code DVT prophylaxis : Heparin s/c N.p.o. Attestations Medical Necessity Statement*: awaiting resolution of sepsis, returning of bowel function Coding Level of Care Code Acute Injection Molding Machine Setter for [facility] Fwd Diagnoses SBO (small bowel obstruction) K56.609 Aspiration pneumonia J69.0 Hypothyroidism E03.9 COPD (chronic obstructive pulmonary disease) J44.9 Tracheostomy care Z43.0 Septic shock A41.9; R65.21
--- NOTE | 2019-12-13 21:23 | PC.NURSE ---
Dr. Redd to bedside, patient assessed. No new orders given. Dr. Redd and patient discussed the possibility of patient requiring surgery is bowel obstruction does not resolve in the next few days.
[2019-12-14] VITALS (32 sets, daily range): BP systolic 107–156; BP diastolic 65–102; PULSE 74–109; RESP 7–25; TEMP 36.4–37.4; O2SAT 88–96
[2019-12-14] MEDS: ipratropium-albuterol 3 mL Neb INHALATION ×2 (02:10→08:01)
[2019-12-14] MEDS: piperacillin-tazobactam 3.375 GM in sodium chloride 0.9% (plus) 50 ML IV ×2 (03:10→15:15)
[2019-12-14] MEDS: famotidine 20 mg/2 mL INJ IVP ×2 (03:10→15:15)
[2019-12-14] MEDS: HYDROmorphone 1 mg/mL INJ 1 mL 2 MG IVP ×4 (04:04→21:47)
[2019-12-14] MEDS: sodium chloride 0.9% 1,000 ML 125 ML IV ×3 (05:21→22:46)
--- NOTE | 2019-12-14 06:00 | USCV_ITS ---
Greg Stephens Age: 64 Gender: M : 1955 Exam Date: 12/14/2019 13:34 Ordering Phys: Tabitha Machado MD Technologist: Kim Taveras [place]am [place] [facility] [place]: Estimate EF, diastolic function BP: 141 / 89 HR: Rhythm: Sinus Technical Quality: Very technically difficult study MEASUREMENTS (Male / Female) Normal Values 2D ECHO LV Chamber Size 5.0 cm RV Chamber Size 3.8 cm LVOT Diameter 2.0 cm LV Ejection Fraction MOD 2C 79.2 % LV Ejection Fraction 2C AL 79.7 % LA Width 2.7 cm LA Height 5.0 cm RA Width 3.6 cm RA Height 4.4 cm DOPPLER AV Peak Velocity 137.0 cm/s LVOT Peak Velocity 143.0 cm/s AV Area Cont Eq vti 3.2 cm squared AV Area Cont Eq pk 3.2 cm squared MV Area PHT 3.5 cm squared Mitral E to A Ratio 0.8 MV E' Velocity 15.0 cm/s Mitral E to MV E' Ratio 6.0 Mitral E to LV E' Lateral Ratio 5.2 Mitral E to LV E' Septal Ratio 7.0 TV Peak E Velocity 66.0 cm/s Right Atrial Pressure 3.0 mmHg FINDINGS Left Ventricle Normal left ventricular size and systolic function, EF 76 %. No regional wall motion abnormalities. Possibly normal diastolic function Right Ventricle Mildly increased right ventricular size. Normal right ventricular systolic function. Right Atrium Mildly increased right atrial size. Left Atrium Normal left atrial size. Mitral Valve Mild mitral annular calcification. Aortic Valve Minimally thickened Tricuspid Valve No gross abnormalities noted Pulmonic Valve Pulmonic valve not well visualized. Pericardium No pericardial effusion. Aorta Normal aortic annulus size. CONCLUSIONS Normal left ventricular size and systolic function, EF 76 %. No regional wall motion abnormalities. Diastolic function, possibly within normal limits Mild mitral annular calcification. Thickened aortic and mitral valves. There is no pericardial effusion. There are no intracardiac masses. No previous study is available for comparison. Dr Valerie Robledo MD [facility] (Electronically Signed) Final Date: 14 December 2019 22:30 S
[2019-12-14] MEDS: heparin 5,000 unit/mL INJ 1 mL 5000 UNIT SUBCUT (06:25)
--- NOTE | 2019-12-14 06:28 | XRR_ITS ---
PROCEDURE INFORMATION: Exam: XR Chest, 1 View Exam date and time: 12/14/2019 6:29 AM Age: 64 years old Clinical indication: Device placement; Ng tube; Additional info: Ng tube placement verification TECHNIQUE: Imaging protocol: XR of the chest Views: Frontal portable upright view of the chest. COMPARISON: CR XR chest 1V portable [id number] 12/12/2019 3:31 PM FINDINGS: Tubes, catheters and devices: The nasogastric tube enters the stomach with the tip in the lower gastric body. The side-port is visible, however, suggesting that the tube tip is in the stomach. The tracheostomy tube tip is approximately 8.5 cm above the michelle. Lungs: The pulmonary vasculature is normal. Increased bibasilar pulmonary partial atelectasis/consolidation. Pleural space: No definite pleural effusion. No pneumothorax. Heart/Mediastinum: The heart is normal in size and contour. Mediastinum: Stable. Bones/joints: Stable. Other findings: PoleLungs: Moderate pulmonary hypoexpansion. XR/XR chest 1V portable [id number] IMPRESSION: 1. PoleLungs: Moderate pulmonary hypoexpansion. 2. Nasogastric tube placement as above. 3. Increased bibasilar pulmonary partial atelectasis/consolidation.
--- NOTE | 2019-12-14 06:31 | PC.NURSE ---
Upon entering room, ng tube noted to be pulled out approx 8 inches, unable to re-insert. Removed NG tube. Re-inserted to right nare, position verified via auscultation, x-ray ordered to verify placement. Placed to LIS.
--- NOTE | 2019-12-14 07:18 | PM.PN ---
Subjective Subjective: Interval history: Still no flatus. The patient is not having much in the way of discomfort, but we had discussed last night proceeding with surgery if there was no improvement by today since he has been in the hospital for several days with no progress. He says he is ready. Vitals/I&O/Wt Last Vital Signs Temp 99.2 F 12/14/19 04:00 Pulse 74 12/14/19 06:00 Resp 12 12/14/19 06:00 BP 141/89 12/14/19 06:00 Pulse Ox 89 L 12/14/19 06:00 12/13/19 12/14/19 12/14/19 22:59 06:59 14:59 Intake Total 1200 / 3343.75 1100 / 3343.75 Output Total 1650 / 2350 700 / 2350 Balance -450 / 993.75 400 / 993.75 Weight last 48 hrs Weight 189 lb 3.2 oz Weight 186 lb 8 oz Physical Exam Narrative: EXAM NARRATIVE: Bowel sounds remain hypoactive. The abdomen is somewhat distended with minimal tenderness in the left lower quadrant. Urinary Catheter Management^: Hendrix: Cath Placed During This Visit: yes Reason for Continuing Indwelling Catheter: Accurate Measurement of Urinary Output in Critically Ill Patients Urinary Catheter Date of Insertion: 12/12/19 Urinary Catheter Time of Insertion: 00:00 Data : 12/13/19 04:08 12/13/19 04:08 Micro: Microbiology 12/12/19 03:10 Blood Culture - Preliminary Blood NEGATIVE TO DATE 12/12/19 03:05 Blood Culture - Preliminary Blood NEGATIVE TO DATE A&P Assessment and plan (1) SBO (small bowel obstruction): We have been discussing surgery for several days. The patient and I had decided last night that if he had not made any progress by today that we would think about proceeding. The patient says he is ready to proceed with surgery. Surgical risks of bleeding, infection, internal organ injury, possible need for bowel resection, etc. have all been discussed. I told him that we could certainly try to start this procedure laparoscopically in hopes that there is an isolated area causing his obstruction, since he has had minimal abdominal surgery in the past. He says even if an open procedure is necessary he still wants to proceed. I will make the necessary arrangements. Status: Acute Attestations Medical Necessity Statement*: See admitting service's notation. Coding Level of Care Code Acute Senior Environmental Consultant for Chg Fwd Diagnoses SBO (small bowel obstruction) K56.600
--- NOTE | 2019-12-14 07:21 | PC.NURSE ---
Report given to AM nurse. Dr. Redd to bedside to speak with patient. Dr. Redd reports that he will take to surgery later today.
--- NOTE | 2019-12-14 08:24 | ANES.PREANE2 ---
Pre-Anesthetic Assessment Pre-Anesthetic Assessment: Height/Weight: Height 1.83 m Weight 85.82 kg Temp Pulse Resp BP Pulse Ox 99.2 F 98 16 141/89 93 12/14/19 04:00 12/14/19 07:42 12/14/19 07:36 12/14/19 06:00 12/14/19 07:36 Proposed Procedure: Operation Date: 12/14/19 09:10 Proposed Procedures p Laparoscopic Adhesiolysis(Not Applicable) - Jamarcus Redd MD Social: Social History: Tobacco and No alcohol Exam: Pre-Anes Outpt Exam: alert, oriented x 3 and regular rate & rhythm Airway: Submandibular: WNL Cervical ROM: WNL MP: 2 Dentition: Full (dentures) Additional comments: trach, h/o CA, s/p Rad History/ROS: No significant history except as noted Pulmonary: Pulmonary: COPD, SAINZ, Sleep apnea and SOB CV/HEM: CV/HEM: HTN : 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 Hepatic: Hepatic: None reported GI: GI: None reported Metabolic: Metabolic: None reported Musc/skel: Musc/skel: None reported Neuropsych: Neuropsych: Anxiety and Depression Anesthetic Plan: ASA status: 4 Anesthesia: Anesthesia Evaluation and General Risk of > 500 ml blood loss (7ml/kg in children): Yes, adequate IV access and fluids planned Meds/Allergies Current Medications: Current Medications Generic Name Dose Route Start Last Admin Trade Name Freq PRN Reason Stop Dose Admin Albuterol/Ipratrop ium 3 ml 12/12/19 16:00 12/14/19 08:01 Duoneb INHALATION 3 ml Q6H.RESPIRATORY S CH Administration Famotidine 20 mg 12/12/19 15:15 12/14/19 03:10 Pepcid Inj IVP 20 mg Q12H WHITNEY Administration Heparin Sodium (Be ef Lung) 5,000 unit 12/12/19 06:15 12/14/19 06:25 Heparin SUBCUT 5,000 unit Q8H WHITNEY Administration Hydromorphone HCl 2 mg 12/12/19 01:00 12/14/19 04:04 Dilaudid Inj IVP 2 mg Q4H PRN Administration pain Sodium Chloride 1,000 mls @ 125 m ls/hr 12/12/19 01:00 12/14/19 05:21 Sodium Chloride 0.9% IV 125 mls/hr .Q8H WHITNEY Administration Piperacillin Sod/T azobactam 50 mls @ 12.5 mls /hr 12/12/19 03:45 12/14/19 07:10 Sod 3.375 gm/ So dium Chloride IV Infused Q12H WHITNEY Infusion Protocol Norepinephrine Bit artrate 4 mg 254 mls @ 0 mls/h r 12/12/19 02:15 12/12/19 23:17 / Dextrose IV Infused .Q0M WHITNEY Titration Protocol Per Protocol Vancomycin HCl 1,5 00 mg/ 250 mls @ 166.667 mls/hr 12/12/19 18:00 12/13/19 18:29 Sodium Chloride IV 166.7 mls/hr Q24H WHITNEY Administration Lanolin 1 applic 12/12/19 06:43 12/12/19 06:54 Lanolin Oint TOPICAL 1 applic PRN PRN Administration DRYNESS Lorazepam 0.5 mg 12/12/19 15:06 12/13/19 13:03 Ativan IVP 0.5 mg Q8H PRN Administration ANXIETY Ondansetron HCl 4 mg 12/12/19 15:06 12/12/19 23:21 Zofran IVP 4 mg Q6H PRN Administration NAUSEA AND VOMITI NG PFSH Anesthesia PFSH: Medical History ADHD Anxiety and depression COPD (chronic obstructive pulmonary disease) Diabetes GERD (gastroesophageal reflux disease) Hypertension 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 Completed 3 doses of cisplatin, last dose on 10/26/2011 Completed radiation therapy on 11/03/2011 Tobacco abuse Surgical History History of laparoscopic cholecystectomy (~2014) 02/17/2016 History of right inguinal hernia repair [place] History of tracheostomy (~2011) Tracheostomy placement on 09/04/2011 Previous tonsillectomy/surgery for obstructive sleep apnea Status post insertion of percutaneous endoscopic gastrostomy (PEG) tube PEG tube placed on 09/01/2011 /subsequently removed Family History Grandmother Heart disease Sister Heart disease Denies family history of Anesthesia complication Bleeding disorder Social History Smoking and tobacco status: current every day smoker cigarettes Packs smoked per day: 1 Quit status (tobacco): has tried quititng Second hand smoke exposure: No Alcohol intake: never Adopted: No Caregiver/support person: Yes Lives independently: Yes Household members: spouse and family Housing: House Marital status: Number of children: 2 Number of grandchildren: 2 service: No Current occupational status: employed and retired Current occupational exposures/hazards: No Pets and animals: Yes History of recent travel: No Leisure activites: games Sexually active: Yes Current gender identity: Male Luli/Episcopalian: Nondenominational Special luli needs: No Agree to transfusion: No Financial difficulty paying for basics: Decline to Answer Data Anesthesia CBC & Chem 7: 12/13/19 04:08 12/13/19 04:08 Other Labs: Laboratory Results - last 48 hr 12/13/19 12/13/19 12/13/19 04:08 04:08 04:08 WBC 5.9 RBC 4.64 Hgb 14.7 Hct 44.1 MCV 95.0 H MCH 31.7 MCHC 33.3 RDW 15.0 Plt Count 184 MPV 9.9 Neut % (Auto) 72.1 Lymph % (Auto) 12.4 [place] % (Auto) 13.1 Eos % (Auto) 0.7 Baso % (Auto) 1.2 Neut # (Auto) 4.23 Lymph # (Auto) 0.7 L [place] # (Auto) 0.8 Eos # (Auto) 0.0 Baso # (Auto) 0.1 Nucleated RBC % (auto) 0 Nucleated RBCs # 0.0 Sodium 133 L Potassium 5.5 H Chloride 99 Carbon Dioxide 26 Anion Gap 13.5 BUN 51 H Creatinine 1.7 H GFR Calculation 40.7 L Glucose 96 Calculated Osmolality 274 L Lactate 1.3 Calcium 7.3 L Total Bilirubin 0.3 AST 267 H ALT 598 H Alkaline Phosphatase 42 NT-Pro-B Natriuret Pep 159 H Total Protein 6.1 L Albumin 3.1 L Globulin 3.0 Cardiac Studies: No Data to Display
--- NOTE | 2019-12-14 09:29 | PC.SOCIAL ---
Pg 2 IMM Explained to pt Pg 2 IMM. Pt verbally understands. No questions voiced. Provided pt a copy. Signed, dated, & timed a copy & placed in chart.
[2019-12-14 10:45] LABS: Alanine Aminotransferase 337 U/L (0-41); Albumin Level 3.3 g/dL (3.5-5.2); Alkaline Phosphatase 41 IU/L (40-130); Anion Gap 10.7 (5-19); Aspartate Amino Transferase 81 U/L (0-40); Blood Urea Nitrogen 29 mg/dL (8-23); Calcium 7.6 mg/dL (8.5-10.5); Carbon Dioxide 27 mmol/L (22-29); Chloride 99 mmol/L (98-107); Globulin 2.8 g/dL (1.3-4.6); Glomerular Filtration Rate 84.7 mL/min (90-130); Glucose 73 mg/dL (65-115); Osmolality Calculated 270 mOsm/kg (285-295); Potassium 4.7 mmol/L (3.5-5.1); Sodium 132 mmol/L (136-145); Total Bilirubin 0.3 mg/dL (0.15-1.2); Total Protein 6.1 g/dL (6.6-8.7)
[2019-12-14 10:51] LABS: Urine Appearance Clear (CLEAR); Urine Color Straw (Yellow)
[2019-12-14 10:52] LABS: Add Urine Culture? No; Amorphous Sediment Urine TRACE; Bacteria Urine TRACE; Bilirubin Urine Neg (NEGATIVE); Blood Urine 2+ (Negative); Glucose Urine UA Norm (Normal); Ketones Urine 1+ (Negative); Leukocyte Esterase Urine Negative (Negative); Mucus Urine TRACE; Nitrate Urine Negative (Negative); Protein Urine Neg (Negative); RBC Urine RARE /hpf (0-2); Specific Gravity, Urine 1.015 (1.005-1.030); Urobilinogen Urine Norm (Negative); WBC Urine 0-4 /hpf (0-5); pH Urine 5 (5-7)
[2019-12-14] MEDS: sodium chloride 0.9% SDV 10 mL 20 ML (11:54)
--- NOTE | 2019-12-14 11:59 | P.OP_ITS ---
Operative Report Date of procedure: December 14, 2019 Pre-op Diagnosis: Small bowel obstruction. Post-op Diagnosis: Same secondary to torsion around adhesion at previous PEG site. Procedure Done: 1. Exploratory laparotomy with adhesiolysis. 2. Incidental appendectomy. Specimens removed/disposition: Appendix (incidental). Surgeon: Jamarcus Redd Anesthesia: General Estimated blood loss (mL): 10 Complications: None. Condition: stable Disposition: ICU Procedure: The patient was brought to the operating room and was placed in a supine position on the operating room table. General anesthesia was induced via his tracheostomy after his fenestrated tracheostomy was replaced with a cuffed tube by anesthesia. The abdomen was prepped and draped in a sterile fashion. The patient already had a nasogastric tube and a Hendrix catheter in place. Initially, laparoscopy was being considered but after the induction of anesthesia the patient's abdomen remained very distended and somewhat tense and so the decision was made to move directly to an open procedure. The patient had a previous PEG site that was dimpled several inches above the umbilicus. This site was elliptically excised vertically and then the incision was carried out directly through the umbilicus inferiorly where the patient was known to have a hernia. Cautery was used to divide the subcutaneous tissue and the previous PEG site at the skin and subcutaneous layer was excised. The peritoneal cavity was entered as the fascia was further opened from the umbilical hernia defect and re vealed a small to moderate amount of straw-colored fluid. The patient's small bowel was very dilated. It was found that the patient had actually torsed his small bowel around an adhesion at the previous PEG site where omentum had stuck to the abdominal wall. This adhesion was taken down and the entire small bowel was then easily brought out through the incision. The bowel was very dilated throughout its length to the distal ileum which had been involved in the torsion, as the cecum was in somewhat of a bascule configuration. Upon externalizing the small bowel, intraluminal contents started moving through the distal ileum most immediately where it had been previously relatively decompressed. The small bowel was somewhat hemorrhagic in areas but was clearly viable. The colon was decompressed but was filled with multiple small hard balls of stool. In addition, the appendix had several very firm pieces of stool/fecaliths in its lumen but did not appear to be inflamed. The patient's nasogastric tube was found by palpation to only be 1 to 2 inches past the GE junction. This was advanced by anesthesia. The contents in the small bowel were then manipulated retrograde from the ileocecal valve using 2 fingers back into the stomach where eventually 2 L of bilious fluid in addition to some air were suctioned out. This decompressed the small bowel very well. The small bowel had no other abnormalities from the ligament of Treitz to the ileocecal valve. It was clearly viable throughout its length. The bowel was returned to the abdomen and multiple liters of irrigation were then carried out. The appendix was readily accessible and given the multiple fecaliths within the lumen it was decided to perform an incidental appendectomy. The mesoappendix was serially divided and ligated with ties of 2-0 Vicryl and then 2 separate ties of 2-0 Vicryl were placed at the base of the appendix and the appendix was excised. The appendiceal stump was briefly cauterized at the mucosa and was then allowed to return to the abdomen. Multiple liters of irrigation were once again used throughout the peritoneal cavity in all quadrants. The stomach was now completely decompressed. No other adhesions or obvious abnormalities were found. Attention was directed towards closure. The midline fascia was closed using a running looped suture of 0 PDS. Some Exparel was then introduced into the skin and musculofascial layers around the incision for postoperative anesthesia. The subcutaneous tissue was irrigated and finally the skin was reapproximated using skin yany with the exception of the skin at the previous umbilical site which was brought down to the fascia with some inverted interrupted sutures of 3-0 Vicryl. A sterile dressing was placed over the wound and the patient was eventually taken back to the intensive care unit in stable condition postoperatively.
[2019-12-14] MEDS: levothyroxine 100 mcg SDV 56 MCG IVP (12:41)
--- NOTE | 2019-12-14 14:35 | PM.PN ---
Subjective Subjective: Interval history: No acute events overnight. Patient has remained off Levophed for last 36 hours. Patient's hemodynamics have remained stable. On examination mean arterial pressure is more than 70 mmHg. His heart rate is well maintained. He is a little nervous regarding the surgery. Denies of having any nausea, vomiting. States that does not have any abdominal pain at present. Patient still is not passing any flatus and has not had any bowel movements. Case discussed with Dr. Redd. Plan for patient to undergo laparoscopic surgery today. Medications: Reviewed: Yes Vitals/I&O/Wt Last Vital Signs Temp 97.6 F 12/14/19 12:31 Pulse 100 12/14/19 14:00 Resp 10 L 12/14/19 14:00 BP 136/84 12/14/19 14:00 Pulse Ox 93 12/14/19 14:00 12/13/19 12/14/19 12/14/19 22:59 06:59 14:59 Intake Total 1200 / 2243.75 1100 / 3343.75 981.25 / 981.25 Output Total 1650 / 1650 700 / 2350 Balance -450 / 593.75 400 / 993.75 981.25 / 981.25 Weight last 48 hrs Weight 85.82 kg Weight 84.595 kg Physical Exam Narrative: EXAM NARRATIVE: GEN: Awake, alert and oriented HEENT: NGT in place CVS: S1S2 N RS: CTA B/L except crackles over RUL, tracheostomy present, no crusting around the trach currently. Abd: Soft, distended, bowel sounds sluggish. CONCRETE BUCKET HOOKER: no focal neuro deficits Urinary Catheter Management^: Hendrix: Cath Placed During This Visit: yes Reason for Continuing Indwelling Catheter: Accurate Measurement of Urinary Output in Critically Ill Patients Urinary Catheter Date of Insertion: 12/12/19 Urinary Catheter Time of Insertion: 00:00 Data : 12/13/19 04:08 12/14/19 10:22 Micro: Microbiology 12/14/19 10:11 MRSA Culture - Final Nose 12/14/19 10:11 Gram Stain - Final Sputum - Endotracheal Tube Aspirate A&P Assessment and plan (1) Septic shock: Status: Acute (2) Aspiration pneumonia: Status: Acute (3) SBO (small bowel obstruction): Status: Acute (4) Hypothyroidism: Status: Acute (5) COPD (chronic obstructive pulmonary disease): Status: Acute (6) Tracheostomy care: Status: Acute Additional A&P Information Recurrent small bowel obstruction N.p.o., NG to suction CT abdomen with High-grade distal small-bowel obstruction. Appreciate Dr. Redd recommendations. Patient to undergo OR today because of failure to conservative treatment. Diet advancement, postop care as per Dr. Redd. N.p.o. for now. Hold heparin for now. Trend lactate , at 1.3 today Continue Fluid resuscitation with normal saline Continue Zosyn for anaerobic coverage and gram-negative microorganisms Surgery consult appreciated, continue conservative management No free air noticed, no bowel perforation off levophed now, septic shock improving Aspiration pneumonia: Sepsis secondary to pneumonia: Sepsis criteria met with tachycardia which was evident of the vitals sheet and blood work at the outside facility, high lactic acid, hypotension, tachycardia, he had received 4 L of fluid Continue zosyn and vancomycin Blood cultures have remained negative. We will check MRSA, sputum Gram stain from the tracheostomy site. Depending on the results of the OR patient might require CT soft tissue neck and CT chest for further evaluation of any collection versus pneumonia. Tracheostomy care Urine Legionella and bacterial antigen negative. Acute on chronic hypoxic respiratory failure causing COPD exacerbation Secondary to aspiration pneumonia Was requiring oxygen mask 15 L/min at home he is using 2 L at baseline DuoNeb treatment, budesonide twice daily. Tracheostomy care Acute kidney injury: Resolved. Likely secondary to ATN from sepsis. Creatinine 0.9 today. Continue IVF. Hypothyroidism: Patient is on levothyroxine 112 mcg at home. Patient has remained n.p.o. and without levothyroxine for last 48 hours. Start patient on IV levothyroxine 56 mcg daily with first dose right now. Full code DVT prophylaxis : Heparin 5000 every 8 N.p.o. Attestations Medical Necessity Statement*: SBO, aspiration pneumonia, recovering sepsis Time Spent in Patient Care: Greater than 35 minutes Coding Level of Care Code Acute Qual Field Manager for Chg Fwd Diagnoses Septic shock A41.9; R65.21 Aspiration pneumonia J69.0 SBO (small bowel obstruction) K56.609 Hypothyroidism E03.9 COPD (chronic obstructive pulmonary disease) J44.9 Tracheostomy care Z43.0
--- NOTE | 2019-12-14 14:41 | CTR_ITS ---
PROCEDURE INFORMATION: Exam: CT Chest Without Contrast Exam date and time: 12/14/2019 9:41 PM Age: 64 years old Clinical indication: Condition or disease; Lung condition and disease; Pneumonia; Other: Not specified; Prior surgery; Surgery date: 6+ months; Surgery type: Trach TECHNIQUE: Imaging protocol: Computed tomography of the chest without contrast. Radiation optimization: All CT scans at this facility use at least one of these dose optimization techniques: automated exposure control; mA and/or kV adjustment per patient size (includes targeted exams where dose is matched to clinical indication); or iterative reconstruction. COMPARISON: CT chest w con* [id number] 10/23/2019 10:16 AM RADIATION DOSE METRICS: Total DLP (mGy-cm): 906.5 FINDINGS: Tubes, catheters and devices: Enteric and tracheostomy tubes seen Lungs: Bilateral pneumonic infiltrates. Centrilobular emphysematous changes. Pleural space: Large bilateral pleural effusions. Heart: Coronary artery atherosclerotic calcifications. Aorta: Unremarkable. No aortic aneurysm. Lymph nodes: Unremarkable. No enlarged lymph nodes. Gallbladder and bile ducts: Cholecystectomy. Intraperitoneal space: Moderate abdominal ascites. Apparent free air seen in the abdomen. Bones/joints: Unremarkable. No acute fracture. Soft tissues: Unremarkable. CT/CT chest wo con [id number] IMPRESSION: 1. Large bilateral pleural effusions. 2. Coronary artery atherosclerotic calcifications. 3. Bilateral pneumonic infiltrates. 4. Enteric and endotracheal tube seen in place. 5. Cholecystectomy. 6. Moderate abdominal ascites. 7. Centrilobular emphysematous changes. 8. Apparent free air seen in the abdomen. Radiation Dose CTDIVOL = (mGy): DLP = 906.5 (mGy-cm)
--- NOTE | 2019-12-14 14:42 | CTR_ITS ---
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 Radiation optimization: All CT scans at this facility use at least one of these dose optimization techniques: automated exposure control; mA and/or kV adjustment per patient size (includes targeted exams where dose is matched to clinical indication); or iterative reconstruction. COMPARISON: CT neck w con* [id number] 10/12/2017 10:44 AM RADIATION DOSE METRICS: Total DLP (mGy-cm): 753.46 FINDINGS: Sinuses: There is mucosal thickening in the sinuses. There is an air-fluid level in the right maxillary sinus. Nasopharynx: Unremarkable. Oropharynx: Unremarkable. No significant tonsillar enlargement. Hypopharynx: The piriform is mass is grossly unchanged on this noncontrast exam. Larynx: The masslike thickening of the left aryepiglottic fold and false vocal cord is unchanged. Retropharyngeal space: Unremarkable. Submandibular/Parotid glands: Normal. Glands are normal in size. Thyroid: Normal. No enlarged or calcified nodules. Lymph nodes: Unremarkable. No lymphadenopathy. Trachea: There is tracheostomy tube with the tip in good position within the center of the trachea. Lumen of the tracheostomy is widely patent. There are no fluid collections or secretions in the trachea or proximal visualized bronchi. Lungs: There are moderate sized bilateral pleural effusions left greater than right. There is severe emphysematous changes. There is ground-glass opacity in the lungs that may reflect pneumonitis or CHF. There is subpleural atelectasis of the dependent portions of the lungs. Bones/joints: There are moderate degenerative changes in the spine. No acute fracture. Soft tissues: Unremarkable. No significant soft tissue swelling. Other findings: There is an orogastric tube tip off. CT/CT neck wo con [id number] IMPRESSION: 1. The tracheostomy is in good position are widely patent. No secretions or debris in the tracheostomy tube or trachea. 2. Unchanged neck mass as above. 3. Severe emphysematous changes and pleural effusions with ground-glass opacity in the lungs. Radiation Dose CTDIVOL = (mGy): DLP = 753.46 (mGy-cm)
--- NOTE | 2019-12-14 15:39 | PC.NURSE ---
PASSCODE ESTABLISHED OF [id number] WITH PATIENT'S
[2019-12-14 18:01] LABS: Vancomycin Trough 8.7 ug/mL (10-15)
--- NOTE | 2019-12-14 22:49 | PM.EVENT ---
Event Note Event Note: Vrad called to notify about the free air seen on CT chest. I reviewed his notes, patient had exploratory laparotomy, this finding appeared seems to be secondary to surgical intervention. Currently hemodynamically stable. No acute intervention indicated.
[2019-12-15] VITALS (30 sets, daily range): BP systolic 102–177; BP diastolic 65–115; PULSE 91–116; RESP 11–29; TEMP 36.6–37.4; O2SAT 88–97
[2019-12-15] MEDS: HYDROmorphone 1 mg/mL INJ 1 mL 2 MG IVP ×4 (01:25→21:15)
[2019-12-15] MEDS: piperacillin-tazobactam 3.375 GM in sodium chloride 0.9% (plus) 50 ML IV ×2 (04:13→15:15)
[2019-12-15] MEDS: famotidine 20 mg/2 mL INJ IVP ×2 (04:13→15:15)
[2019-12-15 05:06] LABS: Alanine Aminotransferase 217 U/L (0-41); Albumin Level 3.1 g/dL (3.5-5.2); Alkaline Phosphatase 40 IU/L (40-130); Anion Gap 14.8 (5-19); Aspartate Amino Transferase 48 U/L (0-40); Blood Urea Nitrogen 21 mg/dL (8-23); Calcium 7.5 mg/dL (8.5-10.5); Carbon Dioxide 22 mmol/L (22-29); Chloride 105 mmol/L (98-107); Globulin 1.9 g/dL (1.3-4.6); Glucose 68 mg/dL (65-115); Osmolality Calculated 279 mOsm/kg (285-295); Sodium 137 mmol/L (136-145); Total Bilirubin 0.4 mg/dL (0.15-1.2)
[2019-12-15 05:07] LABS: Potassium 4.8 mmol/L (3.5-5.1)
[2019-12-15 05:43] LABS: Basophils # 0.1 10^3/uL (0.0-0.1); Basophils % 0.7 %; Eosinophils # 0.1 10^3/uL (0.0-0.8); Eosinophils % 0.8 %; Hematocrit 47.2 % (42.0-52.0); Hemoglobin 15.3 g/dL (11.7-16.6); Lymphocytes # 0.6 10^3/uL (0.8-4.8); Lymphocytes % 7.6 %; Mean Corpuscular HGB Conc 32.4 g/dL (30.0-36.0); Mean Corpuscular Hemoglobin 31.5 pg (28.0-34.0); Mean Corpuscular Volume 97.3 fL (80-94); Mean Platelet Volume 9.7 fL (7.4-10.4); Monocytes # 1.5 10^3/uL (0.2-0.9); Monocytes % 19.3 %; Neutrophils # 5.11 10^3/uL (1.8-7.7); Neutrophils % 66.6 %; Nucleated Red Blood Cells % 0 %; Platelet Count 194 10^3/cmm (130-400); Positive M 1; Red Blood Count 4.85 10^6/uL (4.1-5.3); White Blood Count 7.7 10^3/uL (4.0-10.0)
--- NOTE | 2019-12-15 06:55 | PC.NURSE ---
HEPARIN NOT GIVEN, DEFERRED FROM ESTATE PLANNING DIRECTOR
[2019-12-15] MEDS: heparin 5,000 unit/mL INJ 1 mL 5000 UNIT SUBCUT ×3 (07:10→21:15)
--- NOTE | 2019-12-15 07:17 | PM.PN ---
Subjective Subjective: Interval history: Patient says he already feels better following surgery yesterday. He has not passed any flatus. Vitals/I&O/Wt Last Vital Signs Temp 99.3 F 12/15/19 04:00 Pulse 99 12/15/19 06:00 Resp 20 H 12/15/19 06:00 BP 135/86 12/15/19 06:00 Pulse Ox 95 12/15/19 06:00 12/14/19 12/15/19 12/15/19 22:59 06:59 14:59 Intake Total 1050 / 2031.25 Output Total 1600 / 3150 1550 / 3150 Balance -550 / -1118.75 -1550 / -1118.75 Weight last 48 hrs Weight 189 lb Weight 189 lb 3.2 oz Physical Exam Narrative: EXAM NARRATIVE: Nasogastric tube reveals light green bilious fluid. The abdomen actually has some bowel sounds this morning. The dressing is intact. Urine output appears good. Urinary Catheter Management^: Hendrix: Cath Placed During This Visit: yes Reason for Continuing Indwelling Catheter: Accurate Measurement of Urinary Output in Critically Ill Patients Urinary Catheter Date of Insertion: 12/12/19 Urinary Catheter Time of Insertion: 00:00 Data : 12/15/19 05:33 12/15/19 03:55 Micro: Microbiology 12/14/19 10:11 MRSA Culture - Final Nose 12/14/19 10:11 Gram Stain - Final Sputum - Endotracheal Tube Aspirate A&P Assessment and plan (1) SBO (small bowel obstruction): Status post laparotomy with adhesiolysis/detorsion of small bowel on 12/14/2019. The patient appears to be doing well. Awaiting return of bowel function. Status: Acute Attestations Medical Necessity Statement*: See admitting service's notation. Coding Level of Care Code Acute Lead Oxide Mill Tender for Aravind Terrell Diagnoses SBO (small bowel obstruction) K56.609
[2019-12-15] MEDS: sodium chloride 0.9% 1,000 ML 125 ML IV ×2 (07:32→17:22)
[2019-12-15] MEDS: levothyroxine 100 mcg SDV 56 MCG IVP (10:06)
--- NOTE | 2019-12-15 11:53 | P.PN_ITS ---
Subjective Subjective: Interval history: Improving since surgery, NGT pulled out today, off now and monitoring for improvement Medications: Reviewed: Yes Vitals/I&O/Wt Last Vital Signs Temp 98.0 F 12/15/19 07:00 Pulse 98 12/15/19 11:00 Resp 11 L 12/15/19 11:00 BP 146/92 12/15/19 11:00 Pulse Ox 92 12/15/19 11:00 12/14/19 12/15/19 12/15/19 22:59 06:59 14:59 Intake Total 1050 / 2031.25 1000 / 3031.25 Output Total 1600 / 1600 1550 / 3150 200 / 200 Balance -550 / 431.25 -550 / -118.75 -200 / -200 Weight last 48 hrs Weight 85.729 kg Weight 85.82 kg Physical Exam Narrative: EXAM NARRATIVE: GEN: Awake, alert and oriented HEENT: trach in place CVS: S1S2 N RS: CTA B/L Abd: Soft, nt/nd , bs+ CHIEF RADIOLOGIC TECHNOLOGIST: no focal neuro deficits Urinary Catheter Management^: Hendrix: Cath Placed During This Visit: yes Reason for Continuing Indwelling Catheter: Accurate Measurement of Urinary Output in Critically Ill Patients Urinary Catheter Date of Insertion: 12/12/19 Urinary Catheter Time of Insertion: 00:00 Data : 12/15/19 05:33 12/15/19 03:55 Micro: Microbiology 12/14/19 10:11 MRSA Culture - Final Nose 12/14/19 10:11 Gram Stain - Final Sputum - Endotracheal Tube Aspirate A&P Assessment and plan (1) Septic shock: Status: Acute (2) Aspiration pneumonia: Status: Acute (3) SBO (small bowel obstruction): Status: Acute (4) Hypothyroidism: Status: Acute (5) COPD (chronic obstructive pulmonary disease): Status: Acute (6) Tracheostomy care: Status: Acute Additional A&P Information Recurrent small bowel obstruction CT abdomen with High-grade distal small-bowel obstruction. s/p ex lap because of failure to conservative treatment. Diet advancement, postop care as per Dr. Redd. Continue Fluid resuscitation with normal saline Continue Zosyn for anaerobic coverage and gram-negative microorganisms Surgery consult appreciated off levophed now, septic shock improving Aspiration pneumonia: Sepsis secondary to pneumonia: Sepsis criteria met with tachycardia which was evident of the vitals sheet and blood work at the outside facility, high lactic acid, hypotension, tachycardia, he had received 4 L of fluid Continue zosyn, D/c vancomycin Blood cultures have remained negative. We will check MRSA, sputum Gram stain from the tracheostomy site. Depending on the results of the OR patient might require CT soft tissue neck and CT chest for further evaluation of any collection versus pneumonia. Tracheostomy care Urine Legionella and bacterial antigen negative. Acute on chronic hypoxic respiratory failure causing COPD exacerbation Secondary to aspiration pneumonia Was requiring oxygen mask 15 L/min at home he is using 2 L at baseline DuoNeb treatment, budesonide twice daily. Tracheostomy care Acute kidney injury: Resolved. Likely secondary to ATN from sepsis. Continue IVF. Hypothyroidism: Patient is on levothyroxine 112 mcg at home. Patient has remained n.p.o. and without levothyroxine for last 48 hours. Start patient on IV levothyroxine 56 mcg daily with first dose right now. Full code DVT prophylaxis : Heparin 5000 every 8 N.p.o. Attestations Medical Necessity Statement*: post op monitoring, improvement of SBO Coding Level of Care Code Acute Maintenance Pipefitter for Chg Fwd Diagnoses Septic shock A41.9; R65.21 Aspiration pneumonia J69.0 SBO (small bowel obstruction) K56.609 Hypothyroidism E03.9 COPD (chronic obstructive pulmonary disease) J44.9 Tracheostomy care Z43.0
[2019-12-15] MEDS: LORazepam 2 mg/mL INJ 1 mL 0.5 MG IVP (13:08)
--- NOTE | 2019-12-15 13:55 | PC.NURSE ---
NG tube This nurse entered room to assess patient and noticed patients NG tube was lying on the bed. Dr. Redd was notified and told this nurse to leave out and monitor for changes. Patient is resting in bed bed with eyes closed. Respirations equal and non labored. Will monitor for changes. Dr. Machado notified.
--- NOTE | 2019-12-15 15:02 | PC.RESP ---
Addendum entered by Rashad Salguero, RT 12/15/19 15:17: BILATERIAL BREATH SOUNDS HEARD. HR 98 SAT 94% RR 18 Original Note: 8CUFFED SHILEY EXCHANGED FOR A 8 CUFFLESS FENESTRATED SHILEY TRACH
[2019-12-16] VITALS (32 sets, daily range): BP systolic 103–166; BP diastolic 73–111; PULSE 83–117; RESP 14–36; TEMP 36.6–37.1; O2SAT 86–95
[2019-12-16] MEDS: famotidine 20 mg/2 mL INJ IVP ×2 (03:35→15:10)
[2019-12-16] MEDS: sodium chloride 0.9% 1,000 ML 125 ML IV ×2 (03:35→12:59)
[2019-12-16] MEDS: ondansetron 2 mg/ML SDV 2 mL 4 MG IVP (03:35)
[2019-12-16] MEDS: piperacillin-tazobactam 3.375 GM in sodium chloride 0.9% (plus) 50 ML IV ×3 (03:35→20:32)
[2019-12-16 04:09] LABS: Basophils % 0.4 %; Eosinophils # 0.1 10^3/uL (0.0-0.8); Eosinophils % 0.9 %; Hematocrit 45.1 % (42.0-52.0); Hemoglobin 14.9 g/dL (11.7-16.6); Lymphocytes # 0.9 10^3/uL (0.8-4.8); Lymphocytes % 9.6 %; Mean Corpuscular Volume 96.8 fL (80-94); Mean Platelet Volume 10.2 fL (7.4-10.4); Monocytes # 1.7 10^3/uL (0.2-0.9); Monocytes % 17.3 %; Neutrophils # 5.89 10^3/uL (1.8-7.7); Neutrophils % 61.2 %; Nucleated Red Blood Cells % 0 %; Platelet Count 190 10^3/cmm (130-400); Red Blood Count 4.66 10^6/uL (4.1-5.3); Red Cell Distribution Width 14.7 % (12.1-15.1); White Blood Count 9.6 10^3/uL (4.0-10.0)
[2019-12-16 04:35] LABS: Alanine Aminotransferase 153 U/L (0-41); Albumin Level 2.8 g/dL (3.5-5.2); Alkaline Phosphatase 46 IU/L (40-130); Anion Gap 12.9 (5-19); Aspartate Amino Transferase 37 U/L (0-40); Blood Urea Nitrogen 16 mg/dL (8-23); Calcium 7.9 mg/dL (8.5-10.5); Carbon Dioxide 26 mmol/L (22-29); Chloride 102 mmol/L (98-107); Globulin 3.1 g/dL (1.3-4.6); Glomerular Filtration Rate 113.2 mL/min (90-130); Glucose 69 mg/dL (65-115); Osmolality Calculated 279 mOsm/kg (285-295); Potassium 3.9 mmol/L (3.5-5.1); Sodium 137 mmol/L (136-145); Total Bilirubin 0.4 mg/dL (0.15-1.2); Total Protein 5.9 g/dL (6.6-8.7)
[2019-12-16] MEDS: HYDROmorphone 1 mg/mL INJ 1 mL 2 MG IVP ×3 (04:51→16:34)
[2019-12-16 06:19] LABS: Slide Review Slide Review Perform
[2019-12-16] MEDS: heparin 5,000 unit/mL INJ 1 mL 5000 UNIT SUBCUT ×2 (06:19→15:10)
--- NOTE | 2019-12-16 06:52 | PM.PN ---
Subjective Subjective: Interval history: Nursing reported to me last night that the patient had pulled his NG tube out. We left it out to see how he would do without it. He says he is now passing flatus. He is feeling well and would like some more to drink. Vitals/I&O/Wt Last Vital Signs Temp 97.8 F 12/16/19 04:00 Pulse 107 H 12/16/19 06:00 Resp 16 12/16/19 06:00 BP 147/92 12/16/19 06:00 Pulse Ox 90 12/16/19 06:00 12/15/19 12/15/19 12/16/19 14:59 22:59 06:59 Intake Total 300 / 2350 1050 / 2350 1000 / 2350 Output Total 600 / 2050 650 / 2050 800 / 2050 Balance -300 / 300 400 / 300 200 / 300 Weight last 48 hrs Weight 189 lb Weight 189 lb Physical Exam Narrative: EXAM NARRATIVE: Patient is sitting up in a chair this morning. Bowel sounds are present. Dressing is intact. Urinary Catheter Management^: Hendrix: Cath Placed During This Visit: yes Reason for Continuing Indwelling Catheter: Accurate Measurement of Urinary Output in Critically Ill Patients Urinary Catheter Date of Insertion: 12/12/19 Urinary Catheter Time of Insertion: 00:00 Data : 12/16/19 03:22 12/16/19 03:22 Micro: Microbiology 12/14/19 10:11 Gram Stain - Final Sputum - Endotracheal Tube Aspirate Sputum Culture - Preliminary Gram Negative Rods A&P Assessment and plan (1) SBO (small bowel obstruction): Status post exploratory laparotomy with adhesiolysis/detorsion of small bowel on 12/14/2019. Bowel function has returned. Consistent carbohydrate clear liquid diet. Discontinue Hendrix catheter. Increase activity. Status: Acute Attestations Medical Necessity Statement*: See admitting service's notation. Coding Level of Care Code Acute Web Marketing Coordinator for Aravind Terrell Diagnoses SBO (small bowel obstruction) K56.609
--- NOTE | 2019-12-16 07:49 | PC.RESP ---
Therapist went into room and patient refused treatment at this time. sats are 86% on a 10L 40% bobby mask. patient refused suction at this time. Breath sounds are course. Patient stated he will eat before anything is done.
[2019-12-16] MEDS: levothyroxine 100 mcg SDV 56 MCG IVP (09:02)
[2019-12-16] MEDS: bisacodyl 5 mg Tablet PO (09:03)
--- NOTE | 2019-12-16 11:00 | PC.SOCIAL ---
IMM Updated Page 2 of IMM updated and given to patient. He verbalizes understanding. Initialed, dated, and timed and placed in chart.
--- NOTE | 2019-12-16 12:48 | PM.PN ---
Subjective Subjective: Interval history: Started on clears this morning, poor appetite buit toelrating thus far, passing flatus, sinus tachycardia 105-115/min, 02 sat 90% on venturi mask. Trac replaced yesterday to fenestrated Medications: Reviewed: Yes Vitals/I&O/Wt Last Vital Signs Temp 97.9 F 12/16/19 10:46 Pulse 115 H 12/16/19 12:00 Resp 19 H 12/16/19 12:00 BP 142/101 12/16/19 12:00 Pulse Ox 90 12/16/19 12:00 12/15/19 12/16/19 12/16/19 22:59 06:59 14:59 Intake Total 1050 / 1350 1000 / 2350 300 / 300 Output Total 650 / 1250 800 / 2050 150 / 150 Balance 400 / 100 200 / 300 150 / 150 Weight last 48 hrs Weight 85.729 kg Weight 85.729 kg Physical Exam Narrative: EXAM NARRATIVE: GEN: Awake, alert and oriented, no acute distress HEENT: trah in place CVS: S1S2 N RS: CTA B/L Abd: Soft, nt/nd , bs+ REGULATOR PIN INSERTER: no focal neuro deficits Urinary Catheter Management^: Hendrix: Cath Placed During This Visit: yes, but has since been removed by the nurse Reason for Continuing Indwelling Catheter: Decision to DC Catheter Urinary Catheter Date of Insertion: 12/12/19 Urinary Catheter Time of Insertion: 00:00 Date Urinary Catheter Removed: 12/16/19 Time Urinary Catheter Discontinued: 07:15 Data : 12/16/19 03:22 12/16/19 03:22 Micro: Microbiology 12/14/19 10:11 Gram Stain - Final Sputum - Endotracheal Tube Aspirate Sputum Culture - Preliminary Gram Negative Rods A&P Assessment and plan (1) Septic shock: Status: Acute (2) Aspiration pneumonia: Status: Acute (3) SBO (small bowel obstruction): Status: Acute (4) Hypothyroidism: Status: Acute (5) COPD (chronic obstructive pulmonary disease): Status: Acute (6) Tracheostomy care: Status: Acute Additional A&P Information Recurrent small bowel obstruction CT abdomen with High-grade distal small-bowel obstruction. s/p ex lap because of failure to conservative treatment on 12/13. Diet advancement, postop care as per Dr. Redd. reduce fluids to 50cc/hr now Continue Zosyn for anaerobic coverage and gram-negative microorganisms Surgery consult appreciated Aspiration pneumonia: Sepsis secondary to pneumonia: Sepsis criteria met with tachycardia which was evident of the vitals sheet and blood work at the outside facility, high lactic acid, hypotension, tachycardia, he had received 4 L of fluid Continue zosyn, D/c vancomycin Blood cultures have remained negative. Tracheostomy care Urine Legionella and bacterial antigen negative. Acute on chronic hypoxic respiratory failure causing COPD exacerbation Secondary to aspiration pneumonia Was requiring oxygen mask 15 L/min at home he is using 2 L at baseline. recovery room rn to nasal canula today and monitor for response DuoNeb treatment, budesonide twice daily, however patient refuses Tracheostomy care Acute kidney injury: Resolved. Likely secondary to ATN from sepsis. Continue IVF. Hypothyroidism: Patient is on levothyroxine 112 mcg at home. resume home dose Resume home meds including diltiazem and lisinopril 5mg po qd Full code DVT prophylaxis : Heparin 5000 every 8 started on clears Attestations Medical Necessity Statement*: post op monitoring, awaiting improvement in bowel function Coding Level of Care Code Acute Passenger Train Braker for Chg Fwd Diagnoses Septic shock A41.9; R65.21 Aspiration pneumonia J69.0 SBO (small bowel obstruction) K56.609 Hypothyroidism E03.9 COPD (chronic obstructive pulmonary disease) J44.9 Tracheostomy care Z43.0
[2019-12-16] MEDS: dilTIAZem ER (24HR) 180 mg Capsule PO (15:11)
[2019-12-16] MEDS: buPROPion XL (24 HR) 150 mg Tablet PO (20:30)
[2019-12-17] VITALS (16 sets, daily range): BP systolic 94–163; BP diastolic 61–104; PULSE 77–101; RESP 9–98; TEMP 36.7–37.2; O2SAT 87–96
[2019-12-17] MEDS: heparin 5,000 unit/mL INJ 1 mL 5000 UNIT SUBCUT ×3 (00:14→13:30)
[2019-12-17] MEDS: famotidine 20 mg/2 mL INJ IVP ×2 (04:17→18:12)
[2019-12-17 05:12] LABS: Basophils # 0.1 10^3/uL (0.0-0.1); Basophils % 0.5 %; Eosinophils # 0.2 10^3/uL (0.0-0.8); Eosinophils % 1.5 %; Hematocrit 42.5 % (42.0-52.0); Hemoglobin 13.9 g/dL (11.7-16.6); Lymphocytes # 0.8 10^3/uL (0.8-4.8); Lymphocytes % 7.1 %; Mean Corpuscular HGB Conc 32.7 g/dL (30.0-36.0); Mean Corpuscular Hemoglobin 31.8 pg (28.0-34.0); Mean Corpuscular Volume 97.3 fL (80-94); Mean Platelet Volume 9.8 fL (7.4-10.4); Monocytes # 1.8 10^3/uL (0.2-0.9); Monocytes % 16.7 %; Nucleated Red Blood Cells % 0 %; Platelet Count 182 10^3/cmm (130-400); Positive C 1; Positive M 1; Red Blood Count 4.37 10^6/uL (4.1-5.3); Red Cell Distribution Width 14.7 % (12.1-15.1)
[2019-12-17] MEDS: piperacillin-tazobactam 3.375 GM in sodium chloride 0.9% (plus) 50 ML IV ×2 (05:31→13:30)
[2019-12-17] MEDS: sodium chloride 0.9% 1,000 ML 125 ML IV (05:31)
[2019-12-17] MEDS: HYDROmorphone 1 mg/mL INJ 1 mL 2 MG IVP (05:32)
[2019-12-17 05:39] LABS: Alanine Aminotransferase 101 U/L (0-41); Albumin Level 2.8 g/dL (3.5-5.2); Alkaline Phosphatase 62 IU/L (40-130); Anion Gap 8.8 (5-19); Aspartate Amino Transferase 29 U/L (0-40); Blood Urea Nitrogen 16 mg/dL (8-23); Calcium 8.4 mg/dL (8.5-10.5); Carbon Dioxide 29 mmol/L (22-29); Chloride 104 mmol/L (98-107); Globulin 2.3 g/dL (1.3-4.6); Glomerular Filtration Rate 113.2 mL/min (90-130); Glucose 105 mg/dL (65-115); Osmolality Calculated 283 mOsm/kg (285-295); Potassium 3.8 mmol/L (3.5-5.1); Sodium 138 mmol/L (136-145); Total Bilirubin 0.5 mg/dL (0.15-1.2); Total Protein 5.1 g/dL (6.6-8.7)
[2019-12-17 06:30] LABS: Slide Review Slide Review Perform
--- NOTE | 2019-12-17 08:11 | PC.CHAP ---
Pastoral Care Encounter/Spiritual Assessment Type of Contact [] Declined housekeeper cleaning cooking visit [] Patient/Family/Request visit [] Outpatient visit [] Follow-up visit [] Physician referral [] Code/Alert [x] Routine visit [] Staff referral [] Actively dying [] Patient sleeping [] Family support [] [] Out of room [] Palliative care [] [] Receiving care in room [] Pre-surgical visit [] Trauma [] Long length of stay [] ICU visit [] Other: Relational/Emotional Strength [] Patient feels connected with others/family/visitors/staff [] Distress [] Loneliness/isolation [] Abandonment Spirituality of Patient [] Person of Luli [] Attends Voodoo of their Luli [] Believes in Prayer [] Reads Bible or Nondenominational materials [] There are Spiritual issues to be addressed Batch Roller Operator Interventions [x] Prayer [] Active listening [] Non-anxious presence [] Spiritual/emotional support [] Crisis/trauma care [] Spiritual counseling [] Bereavement support [] Provided bereavement packet [] Provided Bible/devotional materials [] Provided toy/stuffed animal, coloring book to patient or family member [] Provided Communion [] Anointing/[place] [] Salvation [x] Completed spiritual assessment [] Other: Impact on Illness or Injury [] Angry [] Fearful [] Anxious [] Often cries [] Exhaustion [] Unable to work [] Unable to attend uatsdin [] Unable to walk/stand [] Unable to read [] Unable to drive [] Unable to eat/drink [] Unable to sleep [] Unable to be with family [] Patient intubated [] Other: Summary patient seems stronger Time spent with patient
--- NOTE | 2019-12-17 08:17 | P.PN_ITS ---
Subjective Subjective: Interval history: The patient has no complaints today. He would like a laxative to try to go to the bathroom. I have been given him a small dose of Dulcolax daily. He continues to pass flatus. He is not terribly hungry but would like to have some solid food if possible. Vitals/I&O/Wt Last Vital Signs Temp 98.9 F 12/17/19 04:00 Pulse 77 12/17/19 04:00 Resp 21 H 12/17/19 05:32 BP 94/61 12/17/19 04:00 Pulse Ox 96 12/17/19 05:32 12/16/19 12/17/19 12/17/19 22:59 06:59 14:59 Intake Total 1250 / 3130 530 / 3130 Output Total 450 / 925 Balance 800 / 2205 530 / 2205 Weight last 48 hrs Weight 189 lb Physical Exam Narrative: EXAM NARRATIVE: Bowel sounds are present. The dressing was removed and the incision looks good. Urinary Catheter Management^: Hendrix: Cath Placed During This Visit: yes, but has since been removed by the nurse Reason for Continuing Indwelling Catheter: Decision to DC Catheter Urinary Catheter Date of Insertion: 12/12/19 Urinary Catheter Time of Insertion: 00:00 Date Urinary Catheter Removed: 12/16/19 Time Urinary Catheter Discontinued: 07:15 Data : 12/17/19 04:50 12/17/19 04:50 Micro: Microbiology 12/12/19 03:10 Blood Culture - Final Blood NO GROWTH AFTER 5 DAYS 12/12/19 03:05 Blood Culture - Final Blood NO GROWTH AFTER 5 DAYS 12/14/19 10:11 Gram Stain - Final Sputum - Endotracheal Tube Aspirate Sputum Culture - Preliminary Gram Negative Rods A&P Assessment and plan (1) SBO (small bowel obstruction): Status post exploratory laparotomy with adhesiolysis/detorsion of small bowel on 12/14/2019. Advance diet. Larger dose of Dulcolax today. Status: Acute Attestations Medical Necessity Statement*: See admitting service's notation. Coding Level of Care Code Acute Marine Engineering Teacher for Aravind Terrell Diagnoses SBO (small bowel obstruction) K56.609
--- NOTE | 2019-12-17 08:39 | PC.NURSE ---
ASSISTED PT TO CHAIR FOR BREAKFAST. PLEASANT & COOPERATIVE. TRACH SHIELD EMOVED & PLACED ON NC@4L/M. DR CHEEMA IN TO VISIT WITH PT. ABDOMINAL DRESSING REMOVED LEFT OPEN TO AIR. KINDRA INTACT & EDGES WELL APPROXIMATED. DENIES ANY PAIN AT PRESENT. WILL CONTINUE TO MONITOR.
[2019-12-17] MEDS: dilTIAZem ER (24HR) 180 mg Capsule PO (09:01)
[2019-12-17] MEDS: bisacodyl 5 mg Tablet 10 MG PO (09:01)
[2019-12-17] MEDS: bisacodyl 5 mg Tablet PO (09:01)
[2019-12-17] MEDS: levothyroxine 112 mcg Tablet PO (09:01)
[2019-12-17] MEDS: buPROPion XL (24 HR) 150 mg Tablet PO ×2 (09:01→18:12)
--- NOTE | 2019-12-17 16:39 | PM.PN ---
Subjective Subjective: Interval history: passing flatus, still awaiting BM, tolerating minimal po intake, spuum cx with ESBL klebsiella Medications: Reviewed: Yes Vitals/I&O/Wt Last Vital Signs Temp 98.3 F 12/17/19 12:00 Pulse 83 12/17/19 14:00 Resp 16 12/17/19 14:00 BP 123/82 12/17/19 14:00 Pulse Ox 96 12/17/19 14:00 12/17/19 12/17/19 12/17/19 06:59 14:59 22:59 Intake Total 530 / 3130 1627.917 / 1627.917 Output Total 600 / 600 350 / 950 Balance 530 / 2205 1027.917 / 1027.917 -350 / 677.917 Weight last 48 hrs Weight 85.729 kg Physical Exam Narrative: EXAM NARRATIVE: GEN: Awake, alert and oriented, no acute distress CVS: S1S2 N RS: CTA B/L Abd: Soft, nt/nd , bs+ BOX PACKER: no focal neuro deficits Urinary Catheter Management^: Hendrix: Cath Placed During This Visit: yes, but has since been removed by the nurse Reason for Continuing Indwelling Catheter: Decision to DC Catheter Urinary Catheter Date of Insertion: 12/12/19 Urinary Catheter Time of Insertion: 00:00 Date Urinary Catheter Removed: 12/16/19 Time Urinary Catheter Discontinued: 07:15 Data : 12/17/19 04:50 12/17/19 04:50 Micro: Microbiology 12/14/19 10:11 Gram Stain - Final Sputum - Endotracheal Tube Aspirate Sputum Culture - Preliminary Klebsiella oxytoca esbl Staphylococcus aureus Gram Negative Rods 12/12/19 03:10 Blood Culture - Final Blood NO GROWTH AFTER 5 DAYS 12/12/19 03:05 Blood Culture - Final Blood NO GROWTH AFTER 5 DAYS A&P Assessment and plan (1) Septic shock: Status: Acute (2) Aspiration pneumonia: Status: Acute (3) SBO (small bowel obstruction): Status: Acute (4) Hypothyroidism: Status: Acute (5) COPD (chronic obstructive pulmonary disease): Status: Acute (6) Tracheostomy care: Status: Acute Additional A&P Information Recurrent small bowel obstruction CT abdomen with High-grade distal small-bowel obstruction. s/p ex lap because of failure to conservative treatment on 12/13. Diet advancement, postop care as per Dr. Redd. reduce fluids to 50cc/hr now change Zosyn to primaxin in keeping with trach aspirate results Rpt CXR Surgery consult appreciated Aspiration pneumonia: Sepsis secondary to pneumonia: Sepsis criteria met with tachycardia which was evident of the vitals sheet and blood work at the outside facility, high lactic acid, hypotension, tachycardia, he had received 4 L of fluid Continue primaxin Blood cultures have remained negative. Tracheostomy care Urine Legionella and bacterial antigen negative. Acute on chronic hypoxic respiratory failure causing COPD exacerbation Secondary to aspiration pneumonia Was requiring oxygen mask 15 L/min at home he is using 2 L at baseline. national coverage specialist to nasal canula today and monitor for response DuoNeb treatment, budesonide twice daily, however patient refuses Tracheostomy care Acute kidney injury: Resolved. Likely secondary to ATN from sepsis. Continue IVF. Hypothyroidism: Patient is on levothyroxine 112 mcg at home. resume home dose Resume home meds including diltiazem and lisinopril 5mg po qd Full code DVT prophylaxis : Heparin 5000 every 8 started on clears Attestations Medical Necessity Statement*: transfer out of ICU, awaiting bowel function Coding Level of Care Code Acute Physical Security Specialist for Chg Fwd Diagnoses Septic shock A41.9; R65.21 Aspiration pneumonia J69.0 SBO (small bowel obstruction) K56.609 Hypothyroidism E03.9 COPD (chronic obstructive pulmonary disease) J44.9 Tracheostomy care Z43.0
--- NOTE | 2019-12-17 19:25 | PC.NURSE ---
1829-- REPORT CALLED TO CATALINA ADAMS. PT & BELONGINGS TO ROOM 279-1 PT C/O CONSTIPATION & STATES THAT HE FEELS LIKE THERE IS STOOL STUCK IN HIS RECTUM. MANUALLY CHECKED, HARD SMALL BALLS OF STOOL FELT AT END OF FINGERTIP. DR CHEEMA NOTIFIED, ORDER FOR MILK/MOLASSES ENEMA OBTAINED. SEAN ADAMS NOTIFIED. PT WISHED WELL.
--- NOTE | 2019-12-17 19:49 | XRR_ITS ---
PROCEDURE INFORMATION: Exam: XR Chest, 1 View Exam date and time: 12/17/2019 8:09 PM Age: 64 years old Clinical indication: Condition or disease; Lung condition and disease; Pneumonia; Other: Not specified; Patient HX: Low 02 levels; Additional info: F/up pneumonia TECHNIQUE: Imaging protocol: XR of the chest Views: 1 view. COMPARISON: CT chest con [id number] 12/14/2019 9:59 PM FINDINGS: Tubes, catheters and devices: Tracheostomy tube. Lungs: Interstitial prominence and asymmetric airspace disease, right greater than left. Pleural space: Right pleural effusion, with partial obscuration of the right hemidiaphragm. Heart/Mediastinum: Cardiac silhouette upper limits of normal in size. Bones/joints: Degenerative change. Gastrointestinal tract: Bowel dilatation in the visualized upper abdomen. XR/XR chest 1V portable [id number] IMPRESSION: 1. Asymmetric airspace disease, right greater than left. 2. Right pleural effusion, with partial obscuration of the right hemidiaphragm.
[2019-12-18] VITALS (7 sets, daily range): BP systolic 149–166; BP diastolic 92–98; PULSE 88–94; RESP 16–18; TEMP 36.4–37.4; O2SAT 92–94
[2019-12-18] MEDS: heparin 5,000 unit/mL INJ 1 mL 5000 UNIT SUBCUT ×2 (00:16→05:32)
--- NOTE | 2019-12-18 01:13 | PC.NURSE ---
Pt's belongings are in the cabinet in Pt's room.
[2019-12-18] MEDS: famotidine 20 mg/2 mL INJ IVP (05:32)
[2019-12-18] MEDS: buPROPion XL (24 HR) 150 mg Tablet PO (07:56)
[2019-12-18] MEDS: bisacodyl 5 mg Tablet PO (07:56)
[2019-12-18] MEDS: dilTIAZem ER (24HR) 180 mg Capsule PO (07:56)
[2019-12-18] MEDS: levothyroxine 112 mcg Tablet PO (07:56)
--- NOTE | 2019-12-18 09:04 | PM.PN ---
Subjective Subjective: Interval history: The patient is feeling well today. He was feeling constipated/impacted and ended up getting an enema last night. He said he filled the commode with stool and had more bowel movements this morning. He is feeling better. He is eating solid food. He wants to go home. Vitals/I&O/Wt Last Vital Signs Temp 98.3 F 12/18/19 08:00 Pulse 88 12/18/19 08:32 Resp 16 12/18/19 08:32 BP 149/98 12/18/19 08:00 Pulse Ox 94 12/18/19 08:32 12/17/19 12/18/19 12/18/19 22:59 06:59 14:59 Intake Total 962.083 / 2690.000 100 / 2690.000 Output Total 350 / 1735 785 / 1735 Balance 612.083 / 955.000 -685 / 955.000 Weight last 48 hrs Weight 191 lb 9 oz Physical Exam Narrative: EXAM NARRATIVE: Bowel sounds are present. The incision looks good. Urinary Catheter Management^: Hendrix: Cath Placed During This Visit: yes, but has since been removed by the nurse Reason for Continuing Indwelling Catheter: Decision to DC Catheter Urinary Catheter Date of Insertion: 12/12/19 Urinary Catheter Time of Insertion: 00:00 Date Urinary Catheter Removed: 12/16/19 Time Urinary Catheter Discontinued: 07:15 Data : 12/17/19 04:50 12/17/19 04:50 Micro: Microbiology 12/14/19 10:11 Gram Stain - Final Sputum - Endotracheal Tube Aspirate Sputum Culture - Preliminary Klebsiella oxytoca esbl Staphylococcus aureus Gram Negative Rods A&P Assessment and plan (1) SBO (small bowel obstruction): Status post exploratory laparotomy with adhesiolysis/detorsion of small bowel on 12/14/2019. Patient is doing well from a surgical perspective. He is okay for discharge from my standpoint whenever okay with the hospitalist service. I will make arrangements for him to follow-up in my office next week. Status: Acute Attestations Medical Necessity Statement*: See admitting service's notation. Coding Level of Care Code Acute Business Management Manager for Aravind Terrell Diagnoses SBO (small bowel obstruction) K56.609
--- NOTE | 2019-12-18 11:56 | P.DS_ITS ---
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 He was found to have SBO and aspiration pneumonia. # Recurrent small bowel obstruction CT abdomen with High-grade distal small-bowel obstruction. s/p ex lap because of failure to conservative treatment on 12/13. Diet advancement, postop care as per Dr. Redd. Had large BM yesterday and today initially treated with Zosyn, then changed to primaxin with recovery of ESBL Klebsiella on sputum cx. Surgery consult appreciated Aspiration pneumonia: Sepsis secondary to pneumonia: Sepsis criteria met with tachycardia which was evident of the vitals sheet and blood work at the outside facility, high lactic acid, hypotension, tachycardia, he had received 4 L of fluid On primaxin now, being dscharged with ertapenem and doxycycline due to recovery of ESBL Klebsiella and MRSA in sputum cx. Blood cultures have remained negative. Tracheostomy care Urine Legionella and bacterial antigen negative. Tracheostomy tube changed on 12/14 Acute on chronic hypoxic respiratory failure causing COPD exacerbation Secondary to aspiration pneumonia Was requiring oxygen mask 15 L/min at home he is using 2 L at baseline. No won 3lpm [place] which is close to home requirement DuoNeb treatment, budesonide twice daily, however patient refuses nebulizations intermittenetly Tracheostomy care Acute kidney injury: Resolved. Likely secondary to ATN from sepsis. D/c IVF Hypothyroidism: Patient is on levothyroxine 112 mcg at home. resume home dose Resume home meds including diltiazem and lisinopril 5mg po qd Full code Dispo: discharge to [facility] today, Checking rapid Covid 19 antigen for the same Physical Exam Narrative: EXAM NARRATIVE: GEN: Awake, alert and oriented, no acute distress HEENT: trach in place CVS: S1S2 N RS: B/L scattered crackles+ Abd: Soft, nt/nd , bs+ IT TECHNICAL ARCHITECT: no focal neuro deficits EXT: no edema, cyanosis Urinary Catheter Management^: Hendrix: Cath Placed During This Visit: yes, but has since been removed by the nurse Reason for Continuing Indwelling Catheter: Decision to DC Catheter Urinary Catheter Date of Insertion: 12/12/19 Urinary Catheter Time of Insertion: 00:00 Date Urinary Catheter Removed: 12/16/19 Time Urinary Catheter Discontinued: 07:15 Discharge Data Data Completed and Pending: Completed Studies During Hospitalization Category Date Time Status CT abdomen pelvis wo con 79592 Stat Cat Scan 12/12/19 00:[address] chest wo con 7 1250 Routine Cat Scan 12/14/19 14:[address] neck wo con 70 490 Routine Cat Scan 12/14/19 14:42 Completed XR KUB portable 7 4018 Stat Exams 12/12/19 02:48 Completed XR chest 1V armand ble [id number] Routine Exams 12/12/19 15:04 Completed XR chest 1V armand ble 12405 Routine Exams 12/14/19 06:28 Completed XR chest 1V armand ble [id number] Routine Exams 12/17/19 19:49 Completed Pathology: Surgic al [PTH] Routine Pth 12/15/19 08:49 Completed CV echo complete* 50005 Routine Ultrasound 12/14/19 06:00 Completed Pending at discharge Category Date Time Status Sputum Culture an d Gram Stain [facility] Lab 12/14/19 10:11 Results Vitals: Last Vital Signs Temp 98.3 F 12/18/19 08:00 Pulse 88 12/18/19 08:32 Resp 16 12/18/19 08:32 BP 149/98 12/18/19 08:00 Pulse Ox 94 12/18/19 08:32 Discharge Plan Discharge Patient Disposition: Xfer SNF Condition: Stable Prescriptions: New ertapenem 1 gram recon soln 1 gm IV DAILY 3 Days RF: 0 doxycycline hyclate 100 mg capsule 100 mg PO BID 3 Days Qty: 6 RF: 0 Continued lisinopril 5 mg tablet 5 mg PO DAILY RF: 0 levothyroxine 100 mcg capsule 112 mcg PO DAILY RF: 0 bupropion HCl 150 mg tablet extended release 24 hr 150 mg PO BID RF: 0 doxepin 25 mg capsule 25 mg PO BEDTIME PRN (Reason: Sleep) RF: 0 cyanocobalamin (vitamin B-12) 250 mcg Tablet 250 mcg PO DAILY RF: 0 cholecalciferol (vitamin D3) 25 mcg (1,000 unit) Capsule 25 mcg PO DAILY RF: 0 diltiazem HCl 180 mg Capsule,Extended Release 24 Hr 180 mg PO DAILY RF: 0 lorazepam 0.5 mg Tablet TID PRN (Reason: Anxiety) RF: 0 Combivent Respimat 20-100 mcg/actuation Mist 1 puff INHALATION QID RF: 0 nystatin 100,000 unit/gram Cream 1 applic TOPICAL BID RF: 0 sildenafil (pulm.hypertension) 20 mg Tablet 20 mg PO PRN PRN (Reason: 1 hour prior to activity) RF: 0 Discharge Orders: Discharge Order (Routine); Ordered 12/18/19 Ordered By: Tabitha Machado Referrals: [facility] [Outside] [facility] ([facility]) [Outside] Jamarcus Redd MD [Physician] - 1 week (Nursing: Please call Dr. Redd's office ([phone]) and make an appointment for the patient to be seen next week.) Gutierrez Friedman [Primary Care Provider] - Discharge Diet: As Directed Discharge Activity: Limit activity as instructed Activity Restrictions/Additional Instructions: 1. High-fiber diet. 2. May shower at home; okay to get abdominal wound wet. No lifting over 20 pounds, no repetitive bending or twisting, no strenuous pushing / pulling or other heavy activity. Ambulate regularly. May go up and d own steps if needed. Coding Level of Care Code Acute Admitting Office Escort for g Fwd Diagnoses SBO (small bowel obstruction) K56.609 Aspiration pneumonia J69.0
[2019-12-18 13:39] LABS: SARS Covid-2 Antigen Negative (Negative)
[2019-12-18] MEDS: ertapenem 1,000 MG in sodium chloride 0.9% (plus) 100 ML 200 MG IV (14:10)
--- NOTE | 2019-12-23 08:52 | PC.SOCIAL ---
Notified Dr Machado of sputum culture results. Patient was discharged on Doxycycline and Ertapenem. Per Dr Machado continue current treatment no further orders needed. Call placed to Marija at [facility] who is the patient care nurse and updated her as well. Faxed results to her attention with confirmation received that fax was sent successfully.
== END 2019-12-18 16:06 | disposition skilled nursing facility (03) | DRG 853 ==
LOC: ER 23:09 → ICU 23:23 → MEDSURG 12-17 18:33
PROVIDERS: Student in an Organized Health Care Education/Training Program; Surgery; Admitting Provider Internal Medicine; PCP Physician Assistant Medical; Visit Provider Student in an Organized Health Care Education/Training Program
PROC: 0DJD0ZZ Inspection of Lower Intestinal Tract, Open Approach (ICD-10-PCS; principal; 2019-12-14 08:40)
PROC: 0DJD0ZZ Inspection of Lower Intestinal Tract, Open Approach (ICD-10-PCS; 2019-12-14 08:40)
PROC: 0DJD0ZZ Inspection of Lower Intestinal Tract, Open Approach (ICD-10-PCS; CPT 44950; 2019-12-14 08:40)
DX: A41.9 Sepsis, unspecified organism (principal); R65.21 Severe sepsis with septic shock; J96.21 Acute and chronic respiratory failure with hypoxia; J69.0 Pneumonitis due to inhalation of food and vomit; N17.0 Acute kidney failure with tubular necrosis; K56.609 Unspecified intestinal obstruction, unspecified as to partial versus complete obstruction; J44.0 Chronic obstructive pulmonary disease with (acute) lower respiratory infection; E11.9 Type 2 diabetes mellitus without complications; E03.9 Hypothyroidism, unspecified; G47.33 Obstructive sleep apnea (adult) (pediatric); Z85.818 Personal history of malignant neoplasm of other sites of lip, oral cavity, and pharynx; Z92.3 Personal history of irradiation; K21.9 Gastro-esophageal reflux disease without esophagitis; F41.8 Other specified anxiety disorders; I25.10 Atherosclerotic heart disease of native coronary artery without angina pectoris; F17.210 Nicotine dependence, cigarettes, uncomplicated; Z93.0 Tracheostomy status; K36 Other appendicitis; Z85.828 Personal history of other malignant neoplasm of skin
CPT/HCPCS: 12345; 36415; 70490; 71045; 71250; 74018; 74176; 76705; 80048; 80053; 80202; 81001; 83605; 83880; 85025; 85730; 86403; 87040; 87070; 87077; 87186; 87205; 87426; 87449; 87641; 93306; 94640; 96372; 96375; 97116; 97161; 97530; 99281; C9290; J0610; J0743; J1170; J1335; J1644; J2060; J2250; J2370; J2405; J2543; J2704; J2710; J3010; J3370; J3490; J7030; J7050